=== PATIENT | female | born 1955 ===

== ENCOUNTER 2017-04-06 16:56 | Emergency (ER) | payer MEDICAID ==
[2017-04-06 16:57] VITALS: BMI 52.9
[2017-04-06 17:11] VITALS: O2SAT 97
[2017-04-06] MEDS ORDERED: Oxycodone/Acetaminophen 5/325 mg Tab PO STA (17:32)
--- NOTE | 2017-04-06 17:35 | C.PDOC ---
History Of Present Illness 61yo female, presents to ED for evaluation after she tripped on a rug in her bathroom and fell. Patient states she landed on the edge of her sink, injuring the right side of her ribs. She reports pain worsens with deep breathing. She denies any head injury, loss of consciousness. Patient has no other complaints. (Elena Sullivan) History Per: Patient History/Exam Limitations: no limitations Onset/Duration Of Symptoms: Hrs Current Symptoms Are (Timing): Still Present Additional History Per: Patient Time Seen by Provider: 04/06/17 17:25 Chief Complaint (Nursing): Rib Injury Past Medical History Reviewed: Historical Data, Nursing Documentation, Vital Signs - Medical History PMH: Anxiety, Arthritis, Atrial Fibrillation, CHF, Depression, Gastritis, HTN, Migraine, Mitral Valve Prolapse, Pulmonary Embolism, Rheumatoid Arthritis Denies: Chronic Kidney Disease Surgical History: Pacemaker Family History: States: No Known Family Hx, Unknown Family Hx - Social History Hx Tobacco Use: No Hx Alcohol Use: No Hx Substance Use: No - Immunization History Hx Tetanus Toxoid Vaccination: No Hx Influenza Vaccination: Yes (2014) Hx Pneumococcal Vaccination: No Vital Signs: Last Vital Signs Temp 97.7 F 04/06/17 18:28 Pulse 103 H 04/06/17 18:28 Resp 20 04/06/17 18:28 BP 107/67 04/06/17 18:28 Pulse Ox 97 04/06/17 18:28 - [facility] Procedures INSERTION OF INFUSION DEV INTO SUP VENA CAVA, PERC APPROACH (12/06/15) Review Of Systems Except As Marked, All Systems Reviewed And Found Negative. Cardiovascular: Positive for: Other (right sided rib pain) Respiratory: Positive for: Other (pain with deep inspiration) Neurological: Negative for: Other (head injury) Physical Exam - Physical Exam Appears: Non-toxic, In Acute Distress, Other (obese) Skin: Normal Color, Warm, Dry Head: Atraumatic, Normacephalic Eye(s): bilateral: Normal Inspection, PERRL, EOMI Neck: Normal ROM, Supple Chest: Symmetrical, Tenderness (tenderness to 4th and 5th ribs), Ecchymosis ( ecchymosis noted under right axilla) Cardiovascular: Rhythm Regular Respiratory: Other (poor inspiratory effort due to pain) Gastrointestinal/Abdominal: Soft, No Tenderness Neurological/Psych: Oriented x3, Normal Speech ED Course And Treatment O2 Sat by Pulse Oximetry: 97 (RA) Pulse Ox Interpretation: Normal Medical Decision Making Medical Decision Making: Impression: Rib injury s/p fall Plan: -- XR Ribs and chest -- Percocet 1 tab PO Xray viewed by me shows rib fracture 6-7th, non-displaced, no pneumothorax, cardiomegaly, venous congestion, no effusion. patient continues to complain of pain to chest and rib area. Morphine IM ordered. (Elena Sullivan) PA Review folder: XR Reading: PROCEDURE: Radiographs of the Chest and Right Ribs. HISTORY: rib pain s.p injury and SOB COMPARISON: 02/25/2016. TECHNIQUE: Frontal radiograph of the chest and multiple oblique radiographs of the right ribs were obtained. FINDINGS: RIGHT RIBS: There are acute mildly displaced fractures in the right lateral 7108 ribs. Or focal lesion visualized. LUNGS: There is mild pulmonary venous congestion. No focal consolidation. PLEURA: No pneumothorax or pleural fluid. CARDIOVASCULAR: There is moderate cardiomegaly. Mild pulmonary vascular congestion. Status post CABG. There is a left-sided dual lead transvenous permanent pacing device. OTHER FINDINGS: None. IMPRESSION: Acute mildly displaced fractures in the right lateral 7th and 8th ribs. No pneumothorax or pleural effusion. No consolidation. Pt was treated for rib fractures. No pneumothorax or pleural effusion. ( Jade Cleveland) Disposition Counseled Patient/Family Regarding: Diagnosis, Need For Followup, Rx Given - Disposition Disposition Time: 19:00 - POA Present On Arrival: Falls Or Trauma - Disposition Referrals: Lawrence Ocampo MD [Staff Provider] - Disposition: HOME/ ROUTINE Condition: GOOD Additional Instructions: Your xray shows 2 rib fractures on the right side. It is very important you follow up with your primary doctor. Take pain medicine as needed. Prescriptions: Ibuprofen [Motrin] 600 mg PO Q8 #30 tab oxyCODONE/Acetaminophen [Percocet 5/325 mg Tab] 1 tab PO QID PRN #20 tab PRN Reason: Pain Spirometers and Accessories [Pflex Asset Protection Assistant] 1 each MC Q4 #1 each Instructions: Rib Fracture (ED) Forms: Recombine (Urdu) Print Language: TUVALUAN - Clinical Impression Clinical Impression: Fracture of rib of right side - PA / SLAB STRIPPER / Resident Statement MD/DO has reviewed & agrees with the documentation as recorded. - Scribe Statement The provider has reviewed the documentation as recorded by the Scribe (Leslie Bennett) - Scribe Statement Provider Scribe Attestation: All medical record entries made by the Scribe were at my direction and personally dictated by me. I have reviewed the chart and agree that the record accurately reflects my personal performance of the history, physical exam, medical decision making, and the department course for this patient. I have also personally directed, reviewed, and agree with the discharge instructions and disposition. (Elena Sullivan)
[2017-04-06] MEDS ORDERED: Oxycodone/Acetaminophen 5/325 mg Tab ONE (17:50)
[2017-04-06] MEDS ORDERED: Morphine 4 MG/ML VIAL ONE (18:25)
[2017-04-06 18:30] VITALS: BP 107/67; PULSE 103; RESP 20; TEMP 97.7
--- NOTE | 2017-04-07 08:20 | RAD ---
PROCEDURE: Radiographs of the Chest and Right Ribs. HISTORY: rib pain s.p injury and SOB COMPARISON: 02/25/2016. TECHNIQUE: Frontal radiograph of the chest and multiple oblique radiographs of the right ribs were obtained. FINDINGS: RIGHT RIBS: There are acute mildly displaced fractures in the right lateral 7108 ribs. Or focal lesion visualized. LUNGS: There is mild pulmonary venous congestion. No focal consolidation. PLEURA: No pneumothorax or pleural fluid. CARDIOVASCULAR: There is moderate cardiomegaly. Mild pulmonary vascular congestion. Status post CABG. There is a left-sided dual lead transvenous permanent pacing device. OTHER FINDINGS: None. IMPRESSION: Acute mildly displaced fractures in the right lateral 7th and 8th ribs. No pneumothorax or pleural effusion. No consolidation.
== END 2017-04-06 18:55 | disposition home or self-care (01) ==
LOC: C.ER 16:56
DX: S22.41XA Multiple fractures of ribs, right side, initial encounter for closed fracture (principal); W01.198A Fall on same level from slipping, tripping and stumbling with subsequent striking against other object, initial encounter; Y93.E8 Activity, other personal hygiene; Y92.002 Bathroom of unspecified non-institutional (private) residence as the place of occurrence of the external cause
CPT/HCPCS: 71101; 96372; 99284; J2270

== ENCOUNTER 2018-02-23 16:26 | Emergency (ER) | payer MEDICAID ==
[2018-02-23 16:26] VITALS: BMI 52.9
[2018-02-23 18:23] LABS: BASO # 0.1 K/uL (0.0-0.2); EOS # 0.1 K/uL (0.0-0.7); EOS % 0.8 % (0.0-4.0); HEMOGLOBIN 12.5 g/dL (11.0-16.0); MEAN CORPUSCULAR HEMOGLOBIN 24.6 pg (27.0-31.0); MEAN PLATELET VOLUME 8.9 fL (7.2-11.7); MONO % 8.8 % (0.0-10.0)
[2018-02-23 18:28] LABS: BASO % 0.5 % (0.0-2.0); LYMPH # 1.3 K/uL (1.0-4.3); LYMPH % 13.4 % (20.0-40.0); MONO # 0.9 K/uL (0.0-0.8); NEUT # 7.5 K/uL (1.8-7.0); NEUT % 76.5 % (50.0-75.0); RBC 5.06 Mil/uL (3.80-5.20); RED CELL DISTRIBUTION WIDTH 18.3 % (11.5-14.5); WHITE BLOOD COUNT 9.8 K/uL (4.8-10.8)
[2018-02-23 18:43] LABS: ALB/GLOB RATIO 1.1 (1.0-2.1); ALBUMIN 3.6 g/dL (3.5-5.0); BLOOD UREA NITROGEN 15 mg/dL (7-17); CALCIUM 9.2 mg/dl (8.6-10.4); GFR NON-AFRICAN AMERICAN 50
[2018-02-23 18:49] LABS: INR 1.8; PROTHROMBIN TIME 19.9 SECONDS (9.7-12.2)
[2018-02-23 18:54] LABS: B-TYPE NATRIURETIC PEPTIDE 429 pg/mL (0-900)
--- NOTE | 2018-02-23 19:00 | C.PDOC ---
History Of Present Illness 62 year old female, whose PMHx includes Rheumatoid Arthritis, presents to the ED for evaluation of bilateral knee and upper back pain which began around 2-4 weeks ago. Patient states she fell forward and landed onto her knees around 4 weeks ago. She has been applying heat packs and heating gel to her knees, which has only been worsening her symptoms. Patient has been taking hot showers and applying heating pads to her upper back, without relief. Patient states she is not taking any exogenous steroid medications. She denies head injury, LOC, extremity numbness/weakness. As per daughter at bedside, patient has a poor appetite, has been eating very little. Patient has history of sleep apnea and has a sleep mask at home. Patient has history of anxiety and depression, and is often tearful at home. Patient denies history of Peg disease. Time Seen by Provider: 02/23/18 17:36 Chief Complaint (Nursing): Lower Extremity Problem/Injury History Per: Patient, Family (daughter at bedside ) History/Exam Limitations: no limitations Onset/Duration Of Symptoms: Days Current Symptoms Are (Timing): Still Present Additional History Per: Patient Past Medical History Reviewed: Historical Data, Nursing Documentation, Vital Signs Vital Signs: Last Vital Signs Temp 98.7 F 02/23/18 16:33 Pulse 79 02/23/18 16:33 Resp 18 02/23/18 16:33 BP 65/47 L 02/23/18 16:33 Pulse Ox 97 02/23/18 16:33 - Medical History PMH: Anxiety, Arthritis, Atrial Fibrillation, CHF, Depression, Gastritis, HTN, Migraine, Mitral Valve Prolapse, Pulmonary Embolism, Rheumatoid Arthritis Denies: Chronic Kidney Disease Surgical History: Pacemaker - [facility] Procedures INSERTION OF INFUSION DEV INTO SUP VENA CAVA, PERC APPROACH (12/06/15) Family History: States: Unknown Family Hx - Social History Hx Tobacco Use: No Hx Alcohol Use: No Hx Substance Use: No - Immunization History Hx Tetanus Toxoid Vaccination: No Hx Influenza Vaccination: No Hx Pneumococcal Vaccination: No Review Of Systems Musculoskeletal: Positive for: Back Pain (upper ), Other (bilateral knee pain ) Neurological: Negative for: Weakness, Numbness Physical Exam - Physical Exam Appears: Non-toxic, No Acute Distress, Other (morbidly obese ) Skin: Normal Color, Warm, Dry, Other (no edema of lower leg beneath knees) Head: Other (plethoric face) Eye(s): bilateral: Normal Inspection Oral Mucosa: Moist Neck: Supple, Other (supraclavicular fat pads ) Chest: Symmetrical, No Deformity, No Tenderness Cardiovascular: Rhythm Regular, No Murmur Respiratory: Normal Breath Sounds, No Rales, No Rhonchi, No Wheezing Gastrointestinal/Abdominal: Other (central obesity, abdominal striae) Back: Other (buffalo hump) Extremity: Capillary Refill (less than 2 seconds ), Other (lower extremiries are disproportionately small compared to abdomen, no lower extremity edema ) Neurological/Psych: Oriented x3, Normal Speech, Normal Cognition ED Course And Treatment - Laboratory Results Result Diagrams: 18 18:19 18 18:19 Lab Interpretation: Abnormal (D Dimer 360 (slight elev), PM Random Cortisol level (8PM) 5.63 (wnl)) ECG Rhythm: V Paced ECG Interpretation: Normal, No Changes From Prior Rate From EC O2 Sat by Pulse Oximetry: 97 (on RA) Pulse Ox Interpretation: Normal - Radiology CXR: Interpreted by Me CXR Interpretation: Yes: No Acute Disease, Heart Size - CT Scan/US CTA Chest for PE Other Rad Studies (CT/US): Read By Radiologist, Radiology Report Reviewed CT/US Interpretation: IMPRESSION: 1. Very limited study sec buried to the patient's body habitus resulting in significant image noise, in addition to prominent respiratory motion. 2. A filling defect within the central pulmonary arteries is not identified. 3. No infiltrates or pleural effusions. 4. Borderline size heart in transverse diameter. 5. Patient status post sternotomy and cardiac surgery. 6. Thoracic aorta normal in course and caliber. 7. No clinically significant mediastinal adenopathy identified. 8. Exophytic left renal cyst Progress Note: Bloodwork, urinalysis, Knee XR, CT Angio, CXR, EKG ordered and reviewed. Toradol IVP given. 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 SHELBY: Continue CPAP when sleeping Knee pain fall 4 wks ago minimal knee contusions b/l knee x-rays neg. worse with pt's persistent use of heat therapies and heating gels advise to dispose of all heat-generating therapies @home. improved with ED tx of NSAIDS and ice therapy. posterior neck discomfort worse with persistent heat therapies normal x-rays by PMD 2 weeks ago no neck pathology (other than buffalo hump) noted Gait Apraxia: Worstening due to knee pain Cardiovascular etiology ruled out: no sig anemia h/o DVT/PE, taking Pradaxa daily with good compliance, d-dimer slightly elevated 360, prob due to body habitus PE Study neg. normal BP Disposition Doctor Will See Patient In The: Office Counseled Patient/Family Regarding: Studies Performed, Diagnosis - Disposition Referrals: Lawrence Ocampo MD [Staff Provider] - Disposition: HOME/ ROUTINE Disposition Time: 21:25 Condition: GOOD Additional Instructions: Peg Syndrome: Classic Clinical presentation Plethoric face, buffalo hump, supraclavicular fat pads, central obesity with vertical abd straia, anxiety/depression poor appetite and PO intake with persistent weight gain random cortisol PM wnl 5.63 Consider 24 urine cortisol and/or ACTH level to continue outpatient eval Seek and stop ALL outpatient oral/injected/topical steroid preparations. Depression/Bipolar: pt never manic by report (daughter) often a byproduct of [place] Syndrome Consider seocondary to Peg syndrome therefore refractory to standard psych tx's. SHELBY: Continue CPAP when sleeping Knee pain/Gait apraxia fall 4 wks ago minimal knee contusions b/l knee x-rays neg. Mild arthritis worse with pt's persistent use of heat therapies and heating gels advise to dispose of all heat-generating therapies @home. improved with ED tx of NSAIDS and ice therapy. continue ice 1/2 hour per hour, nothing hot Motrin/Advil 400-600 mg every 6 hours as needed. ? underlying RA, but no classic hand/finger findings posterior neck discomfort worse with persistent heat therapies normal x-rays by PMD 2 weeks ago no neck pathology (other than buffalo hump) noted Cardiovascular etiology ruled out: no sig anemia h/o DVT/PE, taking Pradaxa daily with good compliance, d-dimer slightly elevated 360, prob due to body habitus PE Study neg. normal BP Instructions: Peg's Syndrome, Chronic Knee Pain Forms: edupristine (Japanese) - Clinical Impression Clinical Impression: Knee pain, bilateral - Scribe Statement The provider has reviewed the documentation as recorded by the Scribe (Pily Fernandez) Provider Attestation: All medical record entries made by the Scribe were at my direction and personally dictated by me. I have reviewed the chart and agree that the record accurately reflects my personal performance of the history, physical exam, medical decision making, and the department course for this patient. I have also personally directed, reviewed, and agree with the discharge instructions and disposition.
--- NOTE | 2018-02-23 19:00 | RAD ---
HISTORY: SOB COMPARISON: Chest x-ray performed 04/06/17 TECHNIQUE: Chest, one view. FINDINGS: Examination markedly limited by habitus. The patient's chin obscures evaluation of the lung apices. LUNGS: No focal consolidation. Please note that chest x-ray has limited sensitivity for the detection of pulmonary masses. PLEURA: No significant pleural effusion identified. No definite pneumothorax . CARDIOVASCULAR: Median sternotomy wires. Severe enlargement of the cardiac silhouette. Left-sided pacemaker. Limited visualization of prosthetic cardiac valve seen to better advantage on prior study. OSSEOUS STRUCTURES: No acute osseous abnormality is detected. VISUALIZED UPPER ABDOMEN: Unremarkable. OTHER FINDINGS: None. IMPRESSION: Severe cardiomegaly. Left-sided pacemaker.
[2018-02-23 19:04] LABS: ALT/SGPT 17 U/L (9-52); AST/SGOT 28 U/L (14-36)
[2018-02-23 19:37] LABS: SQUAMOUS EPITHIAL 5 /hpf (0-5); URINE BACTERIA OCC (<OCC); URINE BILIRUBIN NEGATIVE (NEGATIVE); URINE BLOOD NEGATIVE (NEGATIVE); URINE CLARITY Clear (Clear); URINE COLOR Yellow (YELLOW); URINE GLUCOSE (UA) NORMAL (Normal); URINE LEUKOCYTE ESTERASE NEG Leu/uL (Negative); URINE PROTEIN NEGATIVE (NEGATIVE); URINE UROBILINOGEN NORMAL mg/dL (0.2-1.0)
[2018-02-23] MEDS ORDERED: Iodixanol 320 MG/ML 100 ML BOTTLE IV ONE (20:13)
[2018-02-23 21:24] VITALS: BP 131/67; PULSE 91; RESP 18; TEMP 98.2
[2018-02-23 21:25] VITALS: O2SAT 97
--- NOTE | 2018-02-24 10:10 | CT ---
Date of service: 02/23/2018 PROCEDURE: CT Chest with contrast (Pulmonary Angiogram) HISTORY: Rule out PE., morbid obesity; slight elevated d Dimer COMPARISON: None available. TECHNIQUE: Axial computed tomography images were obtained of the chest in the pulmonary arterial phase of enhancement. Coronal and sagittal reformatted images were created and reviewed. Intravenous contrast dose: Radiation dose: Total exam DLP = 566.33 mGy-cm. This CT exam was performed using one or more of the following dose reduction techniques: Automated exposure control, adjustment of the mA and/or kV according to patient size, and/or use of iterative reconstruction technique. FINDINGS: PULMONARY ARTERIES: Evaluation of the pulmonary arteries is quite limited due to of morbid obesity.. The visualized pulmonary trunk, right and left main, lobar, segmental and proximal subsegmental branches of the pulmonary arteries are well opacified with no definitive filling defects seen to suggest large central pulmonary embolus. Pulmonary trunk measures approximately 3.1 cm. AORTA: No acute findings. No thoracic aortic aneurysm. Ascending thoracic aorta measures approximately 2.8 cm. Descending thoracic aorta measures approximately 2.6 cm. Minimal the o aortic atherosclerotic calcification or mural plaque present. LUNGS: Mild passive/dependent type atelectasis.. Minor scarring changes seen in the right middle lobe and lingular regions.. No focal consolidation. No evidence of parenchymal masses or nodules seen. PLEURAL SPACES: Unremarkable. No effusion or pneumothorax. HEART: Heart size is borderline/mildly enlarged. No significant pericardial effusion. Dense mitral valve calcification.. LYMPH NODES: No significant mediastinal or hilar adenopathy. Trachea midline and patent with no large central endoluminal lesions.. BONES, CHEST WALL: Chronic appearing endplate deformities involving the superior T6 and T7 segments. Minor multilevel degenerative spondylosis of the thoracic spine. OTHER FINDINGS: Enlarged heterogeneous appearing right lobe thyroid gland with few small low-attenuation foci possibly representing nodule. Left lobe thyroid gland is also slightly heterogeneous with tiny calcification. Questionable small hypodense nodule left lobe thyroid gland. Follow-up thyroid ultrasound recommended. IMPRESSION: Limited study due to morbid obesity. No evidence of acute central pulmonary embolus. Mild cardiomegaly. Enlarged heterogeneous right lobe thyroid gland with what appears represent several small ill-defined nodules. Heterogeneous left lobe thyroid gland with small calcification. Recommend follow-up thyroid ultrasound.
--- NOTE | 2018-02-24 12:27 | RAD ---
Date of service: 02/23/2018 PROCEDURE: Bilateral Knee Radiographs. HISTORY: fall forward 1 month ago, morbid obese, ? Effusion COMPARISON: None available. FINDINGS: Examination limited by habitus. BONES: Right Knee: No acute displaced fracture identified. Left Knee: No acute displaced fracture identified. JOINTS: Right Knee: No dislocation. No significant osteoarthritis. Left knee: No dislocation. No significant osteoarthritis. SOFT TISSUES: Right Knee: No evidence of radiopaque foreign body. Left Knee: No evidence of radiopaque foreign body. JOINT EFFUSION: Right Knee: No significant joint effusion identified. Left Knee: No significant joint effusion identified. OTHER FINDINGS: None. IMPRESSION: Limited study. No acute displaced fracture, dislocation, or significant joint effusion identified. If high clinical index of suspicion for occult fracture, recommend CT for further evaluation.
== END 2018-02-23 21:44 | disposition home or self-care (01) ==
LOC: C.ER 16:26
DX: M25.561 Pain in right knee (principal); M25.562 Pain in left knee; I50.9 Heart failure, unspecified; I48.91 Unspecified atrial fibrillation; I10 Essential (primary) hypertension; M06.9 Rheumatoid arthritis, unspecified
CPT/HCPCS: 71045; 71275; 73562; 80053; 81001; 82533; 83880; 84484; 85025; 85378; 85610; 85730; 93005; 96374; 99285; J1885; Q9967

== ENCOUNTER 2018-05-13 22:34 | Inpatient (IN) | payer MEDICAID ==
[2018-05-13 22:34] VITALS: BMI 52.9
[2018-05-13 23:20] LABS: BASO # 0.1 K/uL (0.0-0.2); BASO % 0.7 % (0.0-2.0); EOS # 0.1 K/uL (0.0-0.7); EOS % 0.7 % (0.0-4.0); HEMOGLOBIN 12.6 g/dL (11.0-16.0); LYMPH # 1.2 K/uL (1.0-4.3); LYMPH % 11.3 % (20.0-40.0); MEAN CELL VOLUME 78.5 fL (81.0-99.0); MEAN CORPUSCULAR HEMOGLOBIN 25.4 pg (27.0-31.0); MEAN CORPUSCULAR HGB CONC 32.3 g/dL (33.0-37.0); MEAN PLATELET VOLUME 8.8 fL (7.2-11.7); MONO # 0.9 K/uL (0.0-0.8); MONO % 8.6 % (0.0-10.0); NEUT # 8.1 K/uL (1.8-7.0); NEUT % 78.7 % (50.0-75.0); NRBC % 0.2 % (0.0-2.0); RBC 4.96 Mil/uL (3.80-5.20); RED CELL DISTRIBUTION WIDTH 17.9 % (11.5-14.5); WHITE BLOOD COUNT 10.3 K/uL (4.8-10.8)
[2018-05-13 23:31] LABS: INR 1.4; PROTHROMBIN TIME 15.8 SECONDS (9.7-12.2)
[2018-05-14] LABS: ALB/GLOB RATIO 1.3 (1.0-2.1); ALT/SGPT 13 U/L (9-52); AST/SGOT 20 U/L (14-36); BLOOD UREA NITROGEN 15 mg/dL (7-17); GFR NON-AFRICAN AMERICAN 56
[2018-05-14 00:11] LABS: B-TYPE NATRIURETIC PEPTIDE 583 pg/mL (0-900)
[2018-05-14] MEDS ORDERED: Iodixanol 320 MG/ML 100 ML BOTTLE IV ONE (00:24)
--- NOTE | 2018-05-14 00:28 | C.PDOC ---
History Of Present Illness 62 year old female presents to the ED with daughter after being referred by Dr. Ocampo for evaluation of increasing shortness of breath, dyspnea on exertion and chronic bilateral knee pain. Patient was evaluated in this ED in February 2018 by me. Daughter states they have stopped heat therapy and have been using ice therapy occasionally. Patient has increased difficulty walking and steady central obesity weight gain. Patient was undergone outpatient 24-hnour urine cortisol and ACTH evaluation with Dr. Funes, which were negative for Alexander's disease. Patient denies fever, chills. <Woo Olivo - Last Filed: 05/14/18 00:47> History Per: Patient, Family (daughter) History/Exam Limitations: no limitations Onset/Duration Of Symptoms: Days Current Symptoms Are (Timing): Still Present <Woo Olivo - Last Filed: 05/14/18 00:47> <Heather Laguerre - Last Filed: 05/14/18 06:50> Time Seen by Provider: 05/13/18 22:56 Chief Complaint (Nursing): Chest Pain Past Medical History Reviewed: Historical Data, Nursing Documentation, Vital Signs Vital Signs: Last Vital Signs Temp 98.6 F 05/13/18 22:45 Pulse 80 05/13/18 22:45 Resp 28 H 05/13/18 22:45 BP 125/56 L 05/13/18 22:45 Pulse Ox 95 05/13/18 22:45 - Medical History PMH: Anxiety, Arthritis, Atrial Fibrillation, CHF, Depression, Gastritis, HTN, Migraine, Mitral Valve Prolapse, Pulmonary Embolism, Rheumatoid Arthritis Denies: Chronic Kidney Disease Surgical History: Pacemaker - [facility] Procedures INSERTION OF INFUSION DEV INTO SUP VENA CAVA, PERC APPROACH (12/06/15) Family History: States: Unknown Family Hx - Social History Hx Tobacco Use: No Hx Alcohol Use: No Hx Substance Use: No - Immunization History Hx Tetanus Toxoid Vaccination: No Hx Influenza Vaccination: Yes Hx Pneumococcal Vaccination: Yes <Woo Olivo - Last Filed: 05/14/18 00:47> Vital Signs: Last Vital Signs Temp 98.6 F 05/13/18 22:45 Pulse 80 05/13/18 22:45 Resp 28 H 05/13/18 22:45 BP 125/56 L 05/13/18 22:45 Pulse Ox 95 05/14/18 00:49 - [facility] Procedures INSERTION OF INFUSION DEV INTO SUP VENA CAVA, PERC APPROACH (12/06/15) Family History: States: No Known Family Hx <Heather Laguerre - Last Filed: 05/14/18 06:50> Review Of Systems Respiratory: Positive for: Shortness of Breath, SOB with Excertion Musculoskeletal: Positive for: Other (chronic bilateral knee pain ) <Woo Olivo - Last Filed: 05/14/18 00:47> Physical Exam - Physical Exam Appears: Non-toxic, No Acute Distress, Other (mobidly obese ) Skin: Normal Color, Warm, Dry Head: Atraumatic, Normacephalic Eye(s): bilateral: Normal Inspection Oral Mucosa: Moist Neck: Supple Chest: Symmetrical, No Deformity, No Tenderness Cardiovascular: Rhythm Regular, No Murmur Respiratory: Normal Breath Sounds, No Rales, No Rhonchi, No Wheezing Gastrointestinal/Abdominal: Soft, No Distention, Other (globus abdomen) Extremity: Tenderness (bilateral knees ), Capillary Refill (less than 2 seconds ), Other (lower extremities are obese without edema ) Pulses: Left Dorsalis Pedis: Normal, Right Dorsalis Pedis: Normal Neurological/Psych: Oriented x3, Normal Speech, Normal Cognition <Woo Olivo - Last Filed: 05/14/18 00:47> ED Course And Treatment - Laboratory Results Result Diagrams: 05/13/18 23:17 05/13/18 23:43 Lab Results: PT 15.8 SECONDS (9.7-12.2) H 05/13/18 23:17 INR 1.4 05/13/18 23:17 APTT 55 SECONDS (21-34) H 05/13/18 23:17 D-Dimer, Quantitative 381 ng/mlDDU (0-243) H 05/13/18 23:17 Troponin I 0.0300 ng/mL (0.00-0.120) 05/13/18 23:43 NT-Pro-B Natriuret Pep 583 pg/mL (0-900) 05/13/18 23:43 Total Bilirubin 0.3 mg/dL (0.2-1.3) 05/13/18 23:43 AST 20 U/L (14-36) 05/13/18 23:43 ALT 13 U/L (9-52) 05/13/18 23:43 Alkaline Phosphatase 129 U/L (38-126) H D 05/13/18 23:43 Total Protein 7.0 g/dL (6.3-8.3) 05/13/18 23:43 Albumin 4.0 g/dL (3.5-5.0) 05/13/18 23:43 Globulin 3.0 gm/dL (2.2-3.9) 05/13/18 23:43 Albumin/Globulin Ratio 1.3 (1.0-2.1) 05/13/18 23:43 O2 Sat by Pulse Oximetry: 95 (on RA) Pulse Ox Interpretation: Normal Progress Note: Bloodwork, urinalysis, CT Angio Chest, CXR, EKG ordered. <Woo Olivo E - Last Filed: 05/14/18 00:47> - Laboratory Results Result Diagrams: 05/13/18 23:17 05/13/18 23:43 Lab Results: PT 15.8 SECONDS (9.7-12.2) H 05/13/18 23:17 INR 1.4 05/13/18 23:17 APTT 55 SECONDS (21-34) H 05/13/18 23:17 D-Dimer, Quantitative 381 ng/mlDDU (0-243) H 05/13/18 23:17 Troponin I 0.0300 ng/mL (0.00-0.120) 05/13/18 23:43 NT-Pro-B Natriuret Pep 583 pg/mL (0-900) 05/13/18 23:43 Total Bilirubin 0.3 mg/dL (0.2-1.3) 05/13/18 23:43 AST 20 U/L (14-36) 05/13/18 23:43 ALT 13 U/L (9-52) 05/13/18 23:43 Alkaline Phosphatase 129 U/L (38-126) H D 05/13/18 23:43 Total Protein 7.0 g/dL (6.3-8.3) 05/13/18 23:43 Albumin 4.0 g/dL (3.5-5.0) 05/13/18 23:43 Globulin 3.0 gm/dL (2.2-3.9) 05/13/18 23:43 Albumin/Globulin Ratio 1.3 (1.0-2.1) 05/13/18 23:43 <Heather Laguerre - Last Filed: 05/14/18 06:50> Medical Decision Making Medical Decision Making: no leg edema nor discernable JVD though difficult to assess considering morbidly obese body habitus mild elev d-dimer 381 CTA to r/o PE pending as pt high risk though on Pradaxa 0100: signed over to overnight MD, pending CTA and adm to Dr. Ocampo <Woo Olivo E - Last Filed: 05/14/18 00:47> Disposition <Woo Olivo - Last Filed: 05/14/18 00:47> Discussed With DrTata: Lawrence Ocampo Comment: accepted the pt on his service and took over the care at 4:22AM Doctor Will See Patient In The: Hospital Counseled Patient/Family Regarding: Studies Performed, Diagnosis - Disposition Disposition Time: 01:00 - POA Present On Arrival: Poor Glycemic Control <Heather Laguerre - Last Filed: 05/14/18 06:50> - Disposition Disposition: HOSPITALIZED Condition: FAIR - Clinical Impression Clinical Impression: Dyspnea on exertion, Chest pain, Degenerative joint disease involving multiple joints, Ambulatory dysfunction - Scribe Statement The provider has reviewed the documentation as recorded by the Scribe (Pily Fernandez) Provider Attestation: All medical record entries made by the Scribe were at my direction and personally dictated by me. I have reviewed the chart and agree that the record accurately reflects my personal performance of the history, physical exam, medical decision making, and the department course for this patient. I have also personally directed, reviewed, and agree with the discharge instructions and disposition. <Woo Olivo E - Last Filed: 05/14/18 00:47> Decision To Admit <Woo Olivo - Last Filed: 05/14/18 00:47> - Pt Status Changed To: Hospital Disposition Of: Inpatient - Admit Certification Admit to Inpatient:: After my assessment, the patient will require hospitalization for at least two midnights. This is because of the severity of symptoms shown, intensity of services needed, and/or the medical risk in this patient being treated as an outpatient. - InPatient: Physician Admission Certification: I certify that this patient requires 2 or more midnights of care for the following reason:: After my assessment, the patient will require hospitalization for at least two midnights. This is because of the severity of symptoms shown, intensity of services needed, and/or the medical risk in this patient being treated as an outpatient. - . Bed Request Type: Telemetry Admitting Physician: Lawrence Ocampo <Heather Laguerre - Last Filed: 05/14/18 06:50> - . Patient Diagnosis: Dyspnea on exertion, Chest pain, Degenerative joint disease involving multiple joints, Ambulatory dysfunction
--- NOTE | 2018-05-14 00:38 | C.PDOC ---
Time Seen by Provider: 05/13/18 22:56 Chief Complaint (Nursing): Chest Pain Past Medical History Vital Signs: Last Vital Signs Temp 98.6 F 05/13/18 22:45 Pulse 80 05/13/18 22:45 Resp 28 H 05/13/18 22:45 BP 125/56 L 05/13/18 22:45 Pulse Ox 95 05/13/18 22:45 - Medical History PMH: Anxiety, Arthritis, Atrial Fibrillation, CHF, Depression, Gastritis, HTN, Migraine, Mitral Valve Prolapse, Pulmonary Embolism, Rheumatoid Arthritis Denies: Chronic Kidney Disease Surgical History: Pacemaker - [facility] Procedures INSERTION OF INFUSION DEV INTO SUP VENA CAVA, PERC APPROACH (12/06/15) Family History: States: Unknown Family Hx - Social History Hx Tobacco Use: No Hx Alcohol Use: No Hx Substance Use: No - Immunization History Hx Tetanus Toxoid Vaccination: No Hx Influenza Vaccination: Yes Hx Pneumococcal Vaccination: Yes ED Course And Treatment - Laboratory Results Result Diagrams: 05/13/18 23:17 05/13/18 23:43 Lab Results: PT 15.8 SECONDS (9.7-12.2) H 05/13/18 23:17 INR 1.4 05/13/18 23:17 APTT 55 SECONDS (21-34) H 05/13/18 23:17 D-Dimer, Quantitative 381 ng/mlDDU (0-243) H 05/13/18 23:17 Troponin I 0.0300 ng/mL (0.00-0.120) 05/13/18 23:43 NT-Pro-B Natriuret Pep 583 pg/mL (0-900) 05/13/18 23:43 Total Bilirubin 0.3 mg/dL (0.2-1.3) 05/13/18 23:43 AST 20 U/L (14-36) 05/13/18 23:43 ALT 13 U/L (9-52) 05/13/18 23:43 Alkaline Phosphatase 129 U/L (38-126) H D 05/13/18 23:43 Total Protein 7.0 g/dL (6.3-8.3) 05/13/18 23:43 Albumin 4.0 g/dL (3.5-5.0) 05/13/18 23:43 Globulin 3.0 gm/dL (2.2-3.9) 05/13/18 23:43 Albumin/Globulin Ratio 1.3 (1.0-2.1) 05/13/18 23:43 Lab Interpretation: Abnormal (d-dimer 381) ECG: Interpreted By Me ECG Rhythm: V Paced ECG Interpretation: Normal Rate From EC O2 Sat by Pulse Oximetry: 95 Pulse Ox Interpretation: Normal - Radiology CXR: Interpreted by Me CXR Interpretation: Yes: Cardiomegaly, Other (+ mild congestion) Reevaluation Time: 00:36 Reassessment Condition: Improved Medical Decision Making Medical Decision Making: no leg edema nor discernable JVD though difficult to assess considering morbidly obese body habitus mild elev d-dimer 381 CTA to r/o PE pending as pt high risk though on Pradaxa 0100: signed over to overnight MD, pending CTA and adm to Dr. Ocampo Disposition - Disposition Disposition Time: 01:00 Condition: GOOD - Clinical Impression Clinical Impression: Dyspnea on exertion Physician Patient Turnover Patient Signed Over To: Heather Laguerre Handoff Comments: adm to [facility] after CTA
[2018-05-14 05:11] LABS: SQUAMOUS EPITHIAL 2 /hpf (0-5); URINE BACTERIA RARE (<OCC); URINE BILIRUBIN NEGATIVE (NEGATIVE); URINE BLOOD NEGATIVE (NEGATIVE); URINE CLARITY Clear (Clear); URINE COLOR Yellow (YELLOW); URINE GLUCOSE (UA) NORMAL (Normal); URINE LEUKOCYTE ESTERASE NEG Leu/uL (Negative); URINE PROTEIN NEGATIVE (NEGATIVE); URINE UROBILINOGEN NORMAL mg/dL (0.2-1.0)
[2018-05-14 05:25] LABS: BARBITURATES, UR NEGATIVE (NEGATIVE); BENZODIAZEPINES, UR NEGATIVE (NEGATIVE); OPIATES, UR NEGATIVE (NEGATIVE); PHENCYCLIDINE, UR NEGATIVE (NEGATIVE)
[2018-05-14 08:13] LABS: CK-MB 0.49 ng/mL (0.0-3.38); TROPONIN I 0.035 ng/mL (0.00-0.120)
--- NOTE | 2018-05-14 08:24 | RAD ---
Date of service: 05/13/2018 PROCEDURE: CHEST RADIOGRAPH, 1 VIEW HISTORY: SOB COMPARISON: 02/23/2018. FINDINGS: LUNGS: The lungs are well inflated and clear. PLEURA: No pneumothorax or pleural effusion. CARDIOVASCULAR: There is moderate cardiomegaly. Status post CABG. There is stable position of left-sided permanent pacing device. No aortic atherosclerotic calcifications present. OSSEOUS STRUCTURES: Within normal limits for the patient's age. VISUALIZED UPPER ABDOMEN: Normal. OTHER FINDINGS: None. IMPRESSION: No active pulmonary disease.
[2018-05-14] MEDS: Pantoprazole 40 mg EC Tab PO SCH (09:29)
--- NOTE | 2018-05-14 10:38 | CT ---
Date of service: 05/14/2018 CTA chest PE protocol Indication: ? PE, morbid obese legs, elev d-dimer, sob Technique: Contiguous axial images were obtained through the chest with intravenous contrast enhancement. Sagittal and coronal reconstructions were generated and reviewed. This CT exam was performed using 1 or more of the following dose reduction techniques: Automated exposure control, adjustment of the MAA and/or kV according to patient size, and/or use of iterative reconstruction technique. IV contrast: 100 mL Visipaque 320 IV Radiation dose (DLP): 639.7 MGy-cm. Comparison: Chest x-ray performed 05/13/18 Findings: Examination markedly limited by habitus. Visualized portions of the inferior thyroid gland appear heterogeneous. The mediastinal and hilar vascular structures appear within normal limits. Median sternotomy wires. Cardiomegaly. Prosthetic mitral valve. Left-sided pacemaker with pacer leads present. Limited assessment of the pulmonary arteries. No large central or proximal segmental pulmonary embolus identified. No focal consolidation. No pleural effusion. No pneumothorax. No suspicious pulmonary nodules measuring greater than 5 mm. Limited visualized portions of the upper abdomen: Partially imaged left lower pole renal heterogeneous hypodensity, partially imaged on this examination. Degenerative changes of the spine. Impression: Markedly limited study. Cardiomegaly. Median sternotomy wires. Prosthetic mitral valve. Left-sided pacemaker with pacer leads. Heterogeneous appearance of the included portions inferior thyroid gland. Limited assessment of the pulmonary arteries due to habitus. No large central or proximal segmental pulmonary embolus identified. Limited visualized portions of the upper abdomen: Partially imaged left lower pole renal heterogeneous hypodensity, partially imaged on this examination. Preliminary impression was provided by [employer].
--- NOTE | 2018-05-14 10:58 | CT ---
PROCEDURE: CT Abdomen and Pelvis without Oral or IV contrast. HISTORY: increased abdominal girth, pain COMPARISON: None available. TECHNIQUE: Contiguous axial images of the abdomen and pelvis. No oral or IV contrast administered. Coronal and Sagittal reformats generated and reviewed. Radiation dose: Total exam DLP = 1331.66 mGy-cm. This CT exam was performed using one or more of the following dose reduction techniques: Automated exposure control, adjustment of the mA and/or kV according to patient size, and/or use of iterative reconstruction technique. FINDINGS: Examination markedly limited by habitus as well as motion artifact. There is limited evaluation of the solid organs without the administration of IV contrast. LOWER THORAX: No visible consolidation, pleural effusion, or pneumothorax. Partially imaged cardiomegaly, prosthetic cardiac valve, pacer wires. LIVER: Nodular hepatic contour. GALLBLADDER AND BILE DUCTS: Unremarkable. PANCREAS: Fatty atrophy of the pancreas. SPLEEN: Unremarkable. ADRENALS: Unremarkable. KIDNEYS AND URETERS: No hydronephrosis or obstructing renal calculus. 1.8 cm posterior left lower pole exophytic hypodense mass measures approximately 3 Hounsfield units consistent with a cyst. BLADDER: The urinary bladder appears unremarkable. REPRODUCTIVE: Uterus is present. APPENDIX: The appendix appears within normal limits of caliber. No secondary signs of acute appendicitis. BOWEL: The stomach is nondistended. Lack of oral contrast limits evaluation for bowel pathology. The bowel loops appear within normal limits of caliber without evidence of intestinal obstruction. Diverticulosis without CT evidence of acute diverticulitis. Mild constipation. PERITONEUM: No significant free fluid. No definite free air. LYMPH NODES: No bulky lymphadenopathy identified. VASCULATURE: IVC filter. No aortic aneurysm. Mild atherosclerotic calcifications. BONES: Degenerative changes. OTHER FINDINGS: Mild panniculitis, anterior abdominal wall. IMPRESSION: Nodular hepatic contour. Correlate clinically for possibility of cirrhosis. 1.8 cm left lower pole renal cyst. Diverticulosis without CT evidence of acute diverticulitis. Mild constipation. IVC filter. Mild panniculitis, anterior abdominal wall. Additional findings as above. Preliminary impression was provided by [employer]. Study marked for PA review.
--- NOTE | 2018-05-14 15:25 | RAD ---
Date of service: 05/14/2018 PROCEDURE: Bilateral Knee Radiographs. HISTORY: knee pain COMPARISON: Bilateral knee x-rays 02/23/2018 FINDINGS: BONES: No fracture identified. Spurring noted of the bilateral medial tibial spines. JOINTS: No dislocation seen. Mild narrowing of the left knee medial joint space compartment.. SOFT TISSUES: Unremarkable. JOINT EFFUSION: Right Knee: None. Left Knee: Small suprapatellar joint effusion. OTHER FINDINGS: None. IMPRESSION: No fracture or dislocation identified. Additional findings as above.
--- NOTE | 2018-05-14 16:31 | CP.PCM.CON ---
History of Present Illness - History of Present Illness History of Present Illness: patient seen/examined full consult to follow echocardiogram reviewed. Left vetnricular function is at the lower limits of normal Prosthetic valve function is normal No perivalvular leak is noted. will continue current medical therapy. Patient's presentation is not due to CHF. The patient appears to have mild to moderate pulmonary HTn on echo Past Patient History - Infectious Disease Hx of Infectious Diseases: None - Tetanus Immunizations Tetanus Immunization: Up to Date - Past Medical History & Family History Past Medical History?: Yes - Past Social History Smoking Status: Former Smoker - CARDIAC Hx Atrial Fibrillation: Yes Hx Congestive Heart Failure: Yes Hx Hypertension: Yes Hx Mitral Valve Prolapse: Yes Hx Pacemaker: Yes - PULMONARY Hx Pulmonary Embolism: Yes - NEUROLOGICAL Hx Migraine: Yes - HEENT Hx HEENT Problems: No - RENAL Hx Chronic Kidney Disease: No - ENDOCRINE/METABOLIC Hx Endocrine Disorders: No - HEMATOLOGICAL/ONCOLOGICAL Hx Blood Disorders: No - INTEGUMENTARY Hx Dermatological Problems: No - MUSCULOSKELETAL/RHEUMATOLOGICAL Hx Arthritis: Yes Hx Falls: Yes Hx Rheumatoid Arthritis: Yes - GASTROINTESTINAL Hx Gastritis: Yes - GENITOURINARY/GYNECOLOGICAL Hx Genitourinary Disorders: No - PSYCHIATRIC Hx Anxiety: Yes Hx Depression: Yes Hx Substance Use: No - SURGICAL HISTORY Hx Surgeries: Yes Hx Section: Yes Hx Open Heart Surgery: Yes Hx Valve Replacement: Yes - ANESTHESIA Hx Anesthesia: Yes Hx Anesthesia Reactions: No Meds Allergies/Adverse Reactions: Allergies Allergy/AdvReac Type Severity Reaction Status Date / Time No Known Allergies Allergy Verified 02/23/18 16:32 - Medications Medications: Current Medications Albuterol Sulfate (Albuterol 0.042% Inhal Anne (1.25mg/3ml) Ud) 1.25 mg INH RQ6 [facility] Clonazepam (Klonopin) 1 mg PO HS PRN PRN Reason: Anxiety Dabigatran (Pradaxa) 150 mg PO BID [facility] Last Admin: 05/14/18 09:28 Dose: 150 mg Fluoxetine HCl (Prozac) 20 mg PO DAILY [facility] Last Admin: 05/14/18 09:29 Dose: 20 mg Fluoxetine HCl (Prozac) 10 mg PO QPM [facility] Furosemide (Lasix) 40 mg PO BID [facility] Last Admin: 05/14/18 09:29 Dose: 40 mg Pantoprazole Sodium (Protonix Ec Tab) 40 mg PO DAILY [facility] Last Admin: 05/14/18 09:29 Dose: 40 mg Sacubitril/Valsartan (Entresto 24 Mg-26 Mg) 1 tab PO DAILY [facility] Results - Vital Signs Recent Vital Signs: Last Vital Signs Temp 98.1 F 05/14/18 05:00 Pulse 80 05/14/18 07:50 Resp 21 05/14/18 05:00 BP 120/62 05/14/18 09:29 Pulse Ox 100 05/14/18 05:00 - Labs Result Diagrams: 05/13/18 23:17 05/13/18 23:43 Labs: Laboratory Results - last 24 hr 05/13/18 05/13/18 05/13/18 23:17 23:17 23:43 WBC 10.3 RBC 4.96 Hgb 12.6 Hct 38.9 MCV 78.5 L MCH 25.4 L MCHC 32.3 L RDW 17.9 H Plt Count 668 H MPV 8.8 Neut % (Auto) 78.7 H Lymph % (Auto) 11.3 L [place] % (Auto) 8.6 Eos % (Auto) 0.7 Baso % (Auto) 0.7 Neut # (Auto) 8.1 H Lymph # (Auto) 1.2 [place] # (Auto) 0.9 H Eos # (Auto) 0.1 Baso # (Auto) 0.1 PT 15.8 H INR 1.4 APTT 55 H D-Dimer, Quantitative 381 H Sodium 136 Potassium 5.1 Chloride 100 Carbon Dioxide 30 Anion Gap 11 BUN 15 Creatinine 1.0 Est GFR ( Amer) > 60 Est GFR (Non-Af Amer) 56 Random Glucose 165 H D Calcium 9.0 Phosphorus 3.4 Magnesium 1.7 Total Bilirubin 0.3 AST 20 ALT 13 Alkaline Phosphatase 129 H D Total Creatine Kinase CK-MB (Mass) Troponin I 0.0300 NT-Pro-B Natriuret Pep 583 Total Protein 7.0 Albumin 4.0 Globulin 3.0 Albumin/Globulin Ratio 1.3 Urine Color Urine Clarity Urine pH Ur Specific [place] Urine Protein Urine Glucose (UA) Urine Ketones Urine Blood Urine Nitrate Urine Bilirubin Urine Urobilinogen Ur Leukocyte Esterase Urine WBC (Auto) Urine RBC (Auto) Ur Squamous Epith Cells Urine Bacteria Urine Opiates Screen Urine Methadone Screen Ur Barbiturates Screen Ur Phencyclidine Scrn Ur Amphetamines Screen U Benzodiazepines Scrn U Oth Cocaine Metabols U Cannabinoids Screen 05/14/18 05/14/18 05/14/18 05:05 05:05 07:35 WBC RBC Hgb Hct MCV MCH MCHC RDW Plt Count MPV Neut % (Auto) Lymph % (Auto) [place] % (Auto) Eos % (Auto) Baso % (Auto) Neut # (Auto) Lymph # (Auto) [place] # (Auto) Eos # (Auto) Baso # (Auto) PT INR APTT D-Dimer, Quantitative Sodium Potassium Chloride Carbon Dioxide Anion Gap BUN Creatinine Est GFR ( Amer) Est GFR (Non-Af Amer) Random Glucose Calcium Phosphorus Magnesium Total Bilirubin AST ALT Alkaline Phosphatase Total Creatine Kinase 27 L CK-MB (Mass) 0.49 Troponin I 0.0350 NT-Pro-B Natriuret Pep Total Protein Albumin Globulin Albumin/Globulin Ratio Urine Color Yellow Urine Clarity Clear Urine pH 7.0 Ur Specific [place] 1.018 Urine Protein Negative Urine Glucose (UA) Normal Urine Ketones Negative Urine Blood Negative Urine Nitrate Negative Urine Bilirubin Negative Urine Urobilinogen Normal Ur Leukocyte Esterase Neg Urine WBC (Auto) 1 Urine RBC (Auto) < 1 Ur Squamous Epith Cells 2 Urine Bacteria Rare Urine Opiates Screen Negative Urine Methadone Screen Negative Ur Barbiturates Screen Negative Ur Phencyclidine Scrn Negative Ur Amphetamines Screen Negative U Benzodiazepines Scrn Negative U Oth Cocaine Metabols Negative U Cannabinoids Screen Negative
--- NOTE | 2018-05-14 16:31 | CP.PCM.CON ---
Past Patient History - Infectious Disease Hx of Infectious Diseases: None - Tetanus Immunizations Tetanus Immunization: Up to Date - Past Medical History & Family History Past Medical History?: Yes - Past Social History Smoking Status: Former Smoker - CARDIAC Hx Atrial Fibrillation: Yes Hx Congestive Heart Failure: Yes Hx Hypertension: Yes Hx Mitral Valve Prolapse: Yes Hx Pacemaker: Yes - PULMONARY Hx Pulmonary Embolism: Yes - NEUROLOGICAL Hx Migraine: Yes - HEENT Hx HEENT Problems: No - RENAL Hx Chronic Kidney Disease: No - ENDOCRINE/METABOLIC Hx Endocrine Disorders: No - HEMATOLOGICAL/ONCOLOGICAL Hx Blood Disorders: No - INTEGUMENTARY Hx Dermatological Problems: No - MUSCULOSKELETAL/RHEUMATOLOGICAL Hx Arthritis: Yes Hx Falls: Yes Hx Rheumatoid Arthritis: Yes - GASTROINTESTINAL Hx Gastritis: Yes - GENITOURINARY/GYNECOLOGICAL Hx Genitourinary Disorders: No - PSYCHIATRIC Hx Anxiety: Yes Hx Depression: Yes Hx Substance Use: No - SURGICAL HISTORY Hx Surgeries: Yes Hx Section: Yes Hx Open Heart Surgery: Yes Hx Valve Replacement: Yes - ANESTHESIA Hx Anesthesia: Yes Hx Anesthesia Reactions: No Meds Allergies/Adverse Reactions: Allergies Allergy/AdvReac Type Severity Reaction Status Date / Time No Known Allergies Allergy Verified 02/23/18 16:32 - Medications Medications: Current Medications Albuterol Sulfate (Albuterol 0.042% Inhal Anne (1.25mg/3ml) Ud) 1.25 mg INH RQ6 [facility] Clonazepam (Klonopin) 1 mg PO HS PRN PRN Reason: Anxiety Dabigatran (Pradaxa) 150 mg PO BID [facility] Last Admin: 05/14/18 09:28 Dose: 150 mg Fluoxetine HCl (Prozac) 20 mg PO DAILY [facility] Last Admin: 05/14/18 09:29 Dose: 20 mg Fluoxetine HCl (Prozac) 10 mg PO QPM [facility] Furosemide (Lasix) 40 mg PO BID [facility] Last Admin: 05/14/18 09:29 Dose: 40 mg Pantoprazole Sodium (Protonix Ec Tab) 40 mg PO DAILY [facility] Last Admin: 05/14/18 09:29 Dose: 40 mg Sacubitril/Valsartan (Entresto 24 Mg-26 Mg) 1 tab PO DAILY [facility] Results - Vital Signs Recent Vital Signs: Last Vital Signs Temp 98.1 F 05/14/18 05:00 Pulse 80 05/14/18 07:50 Resp 21 05/14/18 05:00 BP 120/62 05/14/18 09:29 Pulse Ox 100 05/14/18 05:00 - Labs Result Diagrams: 05/13/18 23:17 05/13/18 23:43 Labs: Laboratory Results - last 24 hr 05/13/18 05/13/18 05/13/18 23:17 23:17 23:43 WBC 10.3 RBC 4.96 Hgb 12.6 Hct 38.9 MCV 78.5 L MCH 25.4 L MCHC 32.3 L RDW 17.9 H Plt Count 668 H MPV 8.8 Neut % (Auto) 78.7 H Lymph % (Auto) 11.3 L [place] % (Auto) 8.6 Eos % (Auto) 0.7 Baso % (Auto) 0.7 Neut # (Auto) 8.1 H Lymph # (Auto) 1.2 [place] # (Auto) 0.9 H Eos # (Auto) 0.1 Baso # (Auto) 0.1 PT 15.8 H INR 1.4 APTT 55 H D-Dimer, Quantitative 381 H Sodium 136 Potassium 5.1 Chloride 100 Carbon Dioxide 30 Anion Gap 11 BUN 15 Creatinine 1.0 Est GFR ( Amer) > 60 Est GFR (Non-Af Amer) 56 Random Glucose 165 H D Calcium 9.0 Phosphorus 3.4 Magnesium 1.7 Total Bilirubin 0.3 AST 20 ALT 13 Alkaline Phosphatase 129 H D Total Creatine Kinase CK-MB (Mass) Troponin I 0.0300 NT-Pro-B Natriuret Pep 583 Total Protein 7.0 Albumin 4.0 Globulin 3.0 Albumin/Globulin Ratio 1.3 Urine Color Urine Clarity Urine pH Ur Specific [place] Urine Protein Urine Glucose (UA) Urine Ketones Urine Blood Urine Nitrate Urine Bilirubin Urine Urobilinogen Ur Leukocyte Esterase Urine WBC (Auto) Urine RBC (Auto) Ur Squamous Epith Cells Urine Bacteria Urine Opiates Screen Urine Methadone Screen Ur Barbiturates Screen Ur Phencyclidine Scrn Ur Amphetamines Screen U Benzodiazepines Scrn U Oth Cocaine Metabols U Cannabinoids Screen 05/14/18 05/14/18 05/14/18 05:05 05:05 07:35 WBC RBC Hgb Hct MCV MCH MCHC RDW Plt Count MPV Neut % (Auto) Lymph % (Auto) [place] % (Auto) Eos % (Auto) Baso % (Auto) Neut # (Auto) Lymph # (Auto) [place] # (Auto) Eos # (Auto) Baso # (Auto) PT INR APTT D-Dimer, Quantitative Sodium Potassium Chloride Carbon Dioxide Anion Gap BUN Creatinine Est GFR ( Amer) Est GFR (Non-Af Amer) Random Glucose Calcium Phosphorus Magnesium Total Bilirubin AST ALT Alkaline Phosphatase Total Creatine Kinase 27 L CK-MB (Mass) 0.49 Troponin I 0.0350 NT-Pro-B Natriuret Pep Total Protein Albumin Globulin Albumin/Globulin Ratio Urine Color Yellow Urine Clarity Clear Urine pH 7.0 Ur Specific [place] 1.018 Urine Protein Negative Urine Glucose (UA) Normal Urine Ketones Negative Urine Blood Negative Urine Nitrate Negative Urine Bilirubin Negative Urine Urobilinogen Normal Ur Leukocyte Esterase Neg Urine WBC (Auto) 1 Urine RBC (Auto) < 1 Ur Squamous Epith Cells 2 Urine Bacteria Rare Urine Opiates Screen Negative Urine Methadone Screen Negative Ur Barbiturates Screen Negative Ur Phencyclidine Scrn Negative Ur Amphetamines Screen Negative U Benzodiazepines Scrn Negative U Oth Cocaine Metabols Negative U Cannabinoids Screen Negative
[2018-05-14 17:15] LABS: CK-MB 0.32 ng/mL (0.0-3.38); TROPONIN I 0.026 ng/mL (0.00-0.120)
[2018-05-14] MEDS: Albuterol 0.042% Inhal Sol (1.25 mg/3 mL) UD INH SCH (20:24)
--- NOTE | 2018-05-14 22:30 | CP.PCM.HP ---
History of Present Illness - History of Present Illness History of Present Illness: 62-year-old female comes to the [facility] emergency room complaining of chest pain, shortness of breath and dyspnea. The past 3 days. patient has a long history of cardiac disease including valve replacement. She also suffers from and severe degenerative joint disease. She complains of severe lower extremity pain with difficulty ambulating. initial evaluation in ER is negative for infarction. Patient continues to complain o and admission was advised. Consultation with Dr. joshi is the patient's obiee lead developer was requested. Chest CT, abdominal CT and x-rays of both lower was requested Present on Admission - Present on Admission Any Indicators Present on Admission: No History of DVT/PE: No History of Uncontrolled Diabetes: No Urinary Catheter: No Decubitus Ulcer Present: No History Surgical Site Infection Following: None Review of Systems - Constitutional Constitutional: Fatigue, Weight Gain - Cardiovascular Cardiovascular: Chest Pain, Dyspnea - Gastrointestinal Gastrointestinal: Belching - Reproductive: Female Reproductive:Female: Menopausal - Musculoskeletal Musculoskeletal: Arthralgias - Integumentary Integumentary: Dry Skin - Psychiatric Psychiatric: Depression - Endocrine Endocrine: Fatigue Past Patient History - Infectious Disease Hx of Infectious Diseases: None - Tetanus Immunizations Tetanus Immunization: Up to Date - Past Medical History & Family History Past Medical History?: Yes - Past Social History Smoking Status: Former Smoker Chewing Tobacco Use: No Cigar Use: No Alcohol: None Drugs: Denies Home Situation {Lives}: With Family - CARDIAC Hx Atrial Fibrillation: Yes Hx Congestive Heart Failure: Yes Hx Hypertension: Yes Hx Mitral Valve Prolapse: Yes Hx Pacemaker: Yes - PULMONARY Hx Pulmonary Embolism: Yes - NEUROLOGICAL Hx Migraine: Yes - HEENT Hx HEENT Problems: No - RENAL Hx Chronic Kidney Disease: No - ENDOCRINE/METABOLIC Hx Endocrine Disorders: No - HEMATOLOGICAL/ONCOLOGICAL Hx Blood Disorders: No - INTEGUMENTARY Hx Dermatological Problems: No - MUSCULOSKELETAL/RHEUMATOLOGICAL Hx Arthritis: Yes Hx Falls: Yes Hx Rheumatoid Arthritis: Yes - GASTROINTESTINAL Hx Gastritis: Yes - GENITOURINARY/GYNECOLOGICAL Hx Genitourinary Disorders: No - PSYCHIATRIC Hx Anxiety: Yes Hx Depression: Yes Hx Substance Use: No - SURGICAL HISTORY Hx Surgeries: Yes Hx Section: Yes Hx Open Heart Surgery: Yes Hx Valve Replacement: Yes - ANESTHESIA Hx Anesthesia: Yes Hx Anesthesia Reactions: No Meds Allergies/Adverse Reactions: Allergies Allergy/AdvReac Type Severity Reaction Status Date / Time No Known Allergies Allergy Verified 02/23/18 16:32 Physical Exam - Constitutional Appears: Chronically Ill - Head Exam Head Exam: NORMOCEPHALIC - Eye Exam Eye Exam: Normal appearance Pupil Exam: NORMAL ACCOMODATION - ENT Exam ENT Exam: Normal Exam - Neck Exam Neck exam: Positive for: Normal Inspection - Respiratory Exam Respiratory Exam: Decreased Breath Sounds - Cardiovascular Exam Cardiovascular Exam: Systolic Murmur - GI/Abdominal Exam GI & Abdominal Exam: Distended, Normal Bowel Sounds - Rectal Exam Rectal Exam: Deferred - Extremities Exam Extremities exam: Positive for: tenderness - Back Exam Back exam: NORMAL INSPECTION - Neurological Exam Neurological exam: Oriented x3 - Psychiatric Exam Psychiatric exam: Depressed - Skin Skin Exam: Dry Results - Vital Signs Recent Vital Signs: Last Vital Signs Temp 98.1 F 05/14/18 05:00 Pulse 80 05/14/18 20:23 Resp 21 05/14/18 05:00 BP 130/70 05/14/18 18:43 Pulse Ox 100 05/14/18 05:00 - Labs Result Diagrams: 05/13/18 23:17 05/13/18 23:43 Labs: Laboratory Results - last 24 hr 05/13/18 05/13/18 05/13/18 23:17 23:17 23:43 WBC 10.3 RBC 4.96 Hgb 12.6 Hct 38.9 MCV 78.5 L MCH 25.4 L MCHC 32.3 L RDW 17.9 H Plt Count 668 H MPV 8.8 Neut % (Auto) 78.7 H Lymph % (Auto) 11.3 L [place] % (Auto) 8.6 Eos % (Auto) 0.7 Baso % (Auto) 0.7 Neut # (Auto) 8.1 H Lymph # (Auto) 1.2 [place] # (Auto) 0.9 H Eos # (Auto) 0.1 Baso # (Auto) 0.1 PT 15.8 H INR 1.4 APTT 55 H D-Dimer, Quantitative 381 H Sodium 136 Potassium 5.1 Chloride 100 Carbon Dioxide 30 Anion Gap 11 BUN 15 Creatinine 1.0 Est GFR ( Amer) > 60 Est GFR (Non-Af Amer) 56 Random Glucose 165 H D Calcium 9.0 Phosphorus 3.4 Magnesium 1.7 Total Bilirubin 0.3 AST 20 ALT 13 Alkaline Phosphatase 129 H D Total Creatine Kinase CK-MB (Mass) Troponin I 0.0300 NT-Pro-B Natriuret Pep 583 Total Protein 7.0 Albumin 4.0 Globulin 3.0 Albumin/Globulin Ratio 1.3 Urine Color Urine Clarity Urine pH Ur Specific [place] Urine Protein Urine Glucose (UA) Urine Ketones Urine Blood Urine Nitrate Urine Bilirubin Urine Urobilinogen Ur Leukocyte Esterase Urine WBC (Auto) Urine RBC (Auto) Ur Squamous Epith Cells Urine Bacteria Urine Opiates Screen Urine Methadone Screen Ur Barbiturates Screen Ur Phencyclidine Scrn Ur Amphetamines Screen U Benzodiazepines Scrn U Oth Cocaine Metabols U Cannabinoids Screen 05/14/18 05/14/18 05/14/18 05:05 05:05 07:35 WBC RBC Hgb Hct MCV MCH MCHC RDW Plt Count MPV Neut % (Auto) Lymph % (Auto) [place] % (Auto) Eos % (Auto) Baso % (Auto) Neut # (Auto) Lymph # (Auto) [place] # (Auto) Eos # (Auto) Baso # (Auto) PT INR APTT D-Dimer, Quantitative Sodium Potassium Chloride Carbon Dioxide Anion Gap BUN Creatinine Est GFR ( Amer) Est GFR (Non-Af Amer) Random Glucose Calcium Phosphorus Magnesium Total Bilirubin AST ALT Alkaline Phosphatase Total Creatine Kinase 27 L CK-MB (Mass) 0.49 Troponin I 0.0350 NT-Pro-B Natriuret Pep Total Protein Albumin Globulin Albumin/Globulin Ratio Urine Color Yellow Urine Clarity Clear Urine pH 7.0 Ur Specific [place] 1.018 Urine Protein Negative Urine Glucose (UA) Normal Urine Ketones Negative Urine Blood Negative Urine Nitrate Negative Urine Bilirubin Negative Urine Urobilinogen Normal Ur Leukocyte Esterase Neg Urine WBC (Auto) 1 Urine RBC (Auto) < 1 Ur Squamous Epith Cells 2 Urine Bacteria Rare Urine Opiates Screen Negative Urine Methadone Screen Negative Ur Barbiturates Screen Negative Ur Phencyclidine Scrn Negative Ur Amphetamines Screen Negative U Benzodiazepines Scrn Negative U Oth Cocaine Metabols Negative U Cannabinoids Screen Negative 05/14/18 16:29 WBC RBC Hgb Hct MCV MCH MCHC RDW Plt Count MPV Neut % (Auto) Lymph % (Auto) [place] % (Auto) Eos % (Auto) Baso % (Auto) Neut # (Auto) Lymph # (Auto) [place] # (Auto) Eos # (Auto) Baso # (Auto) PT INR APTT D-Dimer, Quantitative Sodium Potassium Chloride Carbon Dioxide Anion Gap BUN Creatinine Est GFR ( Amer) Est GFR (Non-Af Amer) Random Glucose Calcium Phosphorus Magnesium Total Bilirubin AST ALT Alkaline Phosphatase Total Creatine Kinase 29 L CK-MB (Mass) 0.32 Troponin I 0.0260 NT-Pro-B Natriuret Pep Total Protein Albumin Globulin Albumin/Globulin Ratio Urine Color Urine Clarity Urine pH Ur Specific [place] Urine Protein Urine Glucose (UA) Urine Ketones Urine Blood Urine Nitrate Urine Bilirubin Urine Urobilinogen Ur Leukocyte Esterase Urine WBC (Auto) Urine RBC (Auto) Ur Squamous Epith Cells Urine Bacteria Urine Opiates Screen Urine Methadone Screen Ur Barbiturates Screen Ur Phencyclidine Scrn Ur Amphetamines Screen U Benzodiazepines Scrn U Oth Cocaine Metabols U Cannabinoids Screen Assessment & Plan (1) Ambulatory dysfunction Status: Acute (2) Chest pain Status: Acute (3) Degenerative joint disease involving multiple joints Status: Acute (4) Dyspnea on exertion Status: Acute
--- NOTE | 2018-05-15 01:18 | CON ---
DATE: 05/14/2018 HISTORY OF PRESENT ILLNESS: This is a 62-year-old lady with history of hypertension, cardiac arrhythmia, mitral valve prolapse and mitral valve replacement, depression, obesity, arthritis, CHF, and bronchitis, now admitted with chest pain and dyspnea and general weakness, headache. On treatment in the hospital, dyspnea and chest pain gradually subsided. She does not bring up phlegm although she has now less likely dry cough with no hemoptysis, no hematemesis. There has been no seizures. No abdominal pain. She is nonsmoker. Does not drink alcohol. Does not chews, and does not have substance abuse. PAST HISTORY: As stated above includes hypertension, cardiac arrhythmias, mitral valve replacement, obesity, arthritis, depression, systemic symptoms as reported above with shortness of breath, chest pain, headache. No significant urinary symptoms. No abdominal pain but complains of arthritic pain and muscle pain. PHYSICAL EXAMINATION: GENERAL: The patient is markedly overweight. She is afebrile. VITAL SIGNS: Her blood pressure 120/62, respirations 20, pulse 80 permanent. HEENT: Unremarkable. There is no thyromegaly. No lymphadenopathy. EXTREMITIES: Deep tendon reflexes unremarkable. Somewhat sluggish. LABORATORY DATA: Chest x-ray shows bilateral lower zone haze, large heart, and suggestive of congestive changes. White count is 10,300, hemoglobin 12.6, platelet count 668,000. INR is 1.4. D-dimer is 381. BUN 15, creatinine 1. Random glucose 165. Calcium 9, AST of 1.7, alkaline phosphatase 129. Troponin 0.03. Pro-BNP is 583. Albumin for urine unremarkable. Opioid screen, methadone screen, cocaine screen, cannabinoid screen are all reported negative. IMPRESSION: Respiratory insufficiency, cardiac arrhythmias, hypertensive cardiovascular disease, congestive heart failure, bronchitis, also history of liver thrombosis. The patient is now on anticoagulant. She is not seen by manager enterprise content management. PLAN: Continue with the current medications including bronchodilators, vasodilators, and antiarrhythmics as prescribed by manager enterprise content management and continue with anticoagulants and diuretics as indicated. Continue on oxygen prescribed BiPAP therapy . Dion Turner MD
[2018-05-15] MEDS: Albuterol 0.042% Inhal Sol (1.25 mg/3 mL) UD INH SCH ×4 (01:32→19:23)
[2018-05-15 08:08] LABS: TROPONIN I 0.02 ng/mL (0.00-0.120)
[2018-05-15 08:47] LABS: FREE T4 0.95 ng/dL (0.78-2.19)
[2018-05-15] MEDS: Pantoprazole 40 mg EC Tab PO SCH (10:09)
[2018-05-15] MEDS: Sacubitril/Valsartan 24-26mg Tab PO SCH (12:31)
[2018-05-15 15:15] LABS: ANTI STREPTOLYSIN O NEGATIVE (NEGATIVE)
--- NOTE | 2018-05-15 21:57 | CP.PCM.PN ---
Subjective - Date & Time of Evaluation Date of Evaluation: 05/14/18 Time of Evaluation: 13:15 - Subjective Subjective: patient still complaining of knee pain. CT scan of the abdomen reveals small cyst at the lower pole of the left kidney, mild constipation, and diverticulitis. X-ray of the knee reveals mild narrowing. Will request thyroid studies. Objective - Vital Signs/Intake and Output Vital Signs (last 24 hours): Temp Pulse Resp BP Pulse Ox 97 F L 81 20 120/83 95 05/15/18 15:51 05/15/18 15:51 05/15/18 15:51 05/15/18 17:20 05/15/18 15:51 - Medications Medications: Current Medications Acetaminophen (Tylenol 325mg Tab) 650 mg PO Q6 PRN PRN Reason: Pain, Mild (1-3) Last Admin: 05/15/18 18:51 Dose: 650 mg Albuterol Sulfate (Albuterol 0.042% Inhal Anne (1.25mg/3ml) Ud) 1.25 mg INH RQ6 [facility] Last Admin: 05/15/18 19:23 Dose: Not Given Clonazepam (Klonopin) 1 mg PO HS PRN PRN Reason: Anxiety Last Admin: 05/14/18 22:09 Dose: 1 mg Dabigatran (Pradaxa) 150 mg PO BID [facility] Last Admin: 05/15/18 17:20 Dose: 150 mg Fluoxetine HCl (Prozac) 20 mg PO DAILY [facility] Last Admin: 05/15/18 10:09 Dose: 20 mg Fluoxetine HCl (Prozac) 10 mg PO QPM [facility] Last Admin: 05/15/18 17:20 Dose: 10 mg Furosemide (Lasix) 40 mg PO BID [facility] Last Admin: 05/15/18 17:20 Dose: 40 mg Ketorolac Tromethamine (Toradol) 30 mg IVP Q8 PRN PRN Reason: 5-10 pain scale Last Admin: 05/15/18 20:17 Dose: 30 mg Pantoprazole Sodium (Protonix Ec Tab) 40 mg PO DAILY [facility] Last Admin: 05/15/18 10:09 Dose: 40 mg Sacubitril/Valsartan (Entresto 24 Mg-26 Mg) 1 tab PO DAILY [facility] Last Admin: 05/15/18 12:31 Dose: 1 tab - Labs Labs: 05/13/18 23:17 05/13/18 23:43 PT 15.8 SECONDS (9.7-12.2) H 05/13/18 23:17 INR 1.4 05/13/18 23:17 APTT 55 SECONDS (21-34) H 05/13/18 23:17 - Constitutional Appears: Chronically Ill - Head Exam Head Exam: NORMOCEPHALIC - Eye Exam Eye Exam: Normal appearance Pupil Exam: NORMAL ACCOMODATION - ENT Exam ENT Exam: Normal Exam - Neck Exam Neck Exam: Normal Inspection - Respiratory Exam Respiratory Exam: Decreased Breath Sounds, NORMAL BREATHING PATTERN - GI/Abdominal Exam GI & Abdominal Exam: Normal Bowel Sounds - Exam Exam: NORMAL INSPECTION - Extremities Exam Extremities Exam: Tenderness - Back Exam Back Exam: NORMAL INSPECTION - Neurological Exam Neurological Exam: Oriented x3 - Skin Skin Exam: Dry Assessment and Plan (1) Ambulatory dysfunction Status: Acute (2) Chest pain Status: Acute (3) Degenerative joint disease involving multiple joints Status: Acute (4) Dyspnea on exertion Status: Acute
--- NOTE | 2018-05-15 23:13 | CARD ---
APPROVED REPORT Date of service: 05/14/2018 EXAM: Two-dimensional and M-mode echocardiogram with Doppler and color Doppler. INDICATION Dyspnea Atrial Fibrillation Pulmonary Embolism Chest Pain MVP RISK FACTORS Hypertension 2D DIMENSIONS IVSd0.9 (0.7-1.1cm)LVDd5.2 (3.9-5.9cm) PWd0.9 (0.7-1.1cm)LA Ubdwtw13 (18-58mL) LVDs3.8 (2.5-4.0cm)FS (%) 28.0 % LVEF (%)53.8 (>50%)LVEF (Wu's)62.31 % M-Mode DIMENSIONS Left Atrium (MM)4.34 (2.5-4.0cm)IVSd0.88 (0.7-1.1cm) Aortic Root3.03 (2.2-3.7cm)LVDd4.82 (4.0-5.6cm) Aortic Cusp Exc.1.76 (1.5-2.0cm)PWd1.08 (0.7-1.1cm) FS (%) 26 %LVDs3.55 (2.0-3.8cm) LVEF (%)51 (>50%) Mitral Valve MV E Rdgopseu469.1cm/sMV E Peak Gr.13mmHgMV A Arcthxep45.0cm/s MV E Mean Gr.7mmHgMV DWB862twD/A ratio2.6 MVA (PHT)1.99cm2 TDI E/Lateral E'0.0E/Medial E'0.0 Tricuspid Valve TR Peak Soudrtvg614ss/sTR Peak Gr.[id number] LEFT VENTRICLE The left ventricle is normal size. There is normal left ventricular wall thickness. The left ventricular function is normal. The left ventricular ejection fraction is within the normal range. There is normal LV segmental wall motion. RIGHT VENTRICLE The right ventricle is normal size. ATRIA The left atrium is mildly dilated. The right atrium size is normal. AORTIC VALVE The aortic valve is normal in structure. MITRAL VALVE Bioprosthetic Mitarl valve with trace regurgitation. TRICUSPID VALVE There is mild to moderate tricuspid regurgitation. <Conclusion> Normal LV systolic finction. Borderline dilated LA. Bioprosthetic Mitral valve with trace regirgitation. Miildly dilated LA. Midl tomoderate TR.
[2018-05-16] MEDS: Albuterol 0.042% Inhal Sol (1.25 mg/3 mL) UD INH SCH ×4 (01:05→19:24)
[2018-05-16] MEDS: Sacubitril/Valsartan 24-26mg Tab PO SCH (10:01)
[2018-05-16] MEDS: Pantoprazole 40 mg EC Tab PO SCH (10:02)
[2018-05-16 18:55] LABS: SQUAMOUS EPITHIAL < 1 /hpf (0-5); URINE BILIRUBIN NEGATIVE (NEGATIVE); URINE BLOOD NEGATIVE (NEGATIVE); URINE CLARITY Hazy (Clear); URINE COLOR Yellow (YELLOW); URINE GLUCOSE (UA) NORMAL (Normal); URINE LEUKOCYTE ESTERASE 3+ Leu/uL (Negative); URINE PROTEIN 1+ mg/dL (NEGATIVE); URINE UROBILINOGEN NORMAL mg/dL (0.2-1.0)
--- NOTE | 2018-05-16 22:04 | CP.PCM.PN ---
Subjective - Date & Time of Evaluation Date of Evaluation: 05/16/18 Time of Evaluation: 15:35 - Subjective Subjective: patient is alert and responsive. She still complain of right knee pain. Results of thyroid ultrasound pending. Urinalysis done on May 14 was within normal l limits. Another request fo a repeat urinalysis was made today. Laboratories rheumatoid arthritis and thyroid levels are pending. Continue present supportive measures. Objective - Vital Signs/Intake and Output Vital Signs (last 24 hours): Temp Pulse Resp BP Pulse Ox 98 F 80 22 87/58 L 96 05/16/18 16:30 05/16/18 16:30 05/16/18 16:30 05/16/18 17:30 05/16/18 16:30 - Medications Medications: Current Medications Acetaminophen (Tylenol 325mg Tab) 650 mg PO Q6 PRN PRN Reason: Pain, Mild (1-3) Last Admin: 05/16/18 12:13 Dose: 650 mg Albuterol Sulfate (Albuterol 0.042% Inhal Anne (1.25mg/3ml) Ud) 1.25 mg INH RQ6 [facility] Last Admin: 05/16/18 19:24 Dose: 1.25 mg Clonazepam (Klonopin) 1 mg PO HS PRN PRN Reason: Anxiety Last Admin: 05/16/18 21:41 Dose: 1 mg Dabigatran (Pradaxa) 150 mg PO BID [facility] Last Admin: 05/16/18 17:29 Dose: 150 mg Fluoxetine HCl (Prozac) 20 mg PO DAILY [facility] Last Admin: 05/16/18 10:02 Dose: 20 mg Fluoxetine HCl (Prozac) 10 mg PO QPM [facility] Last Admin: 05/16/18 17:29 Dose: 10 mg Furosemide (Lasix) 40 mg PO BID [facility] Last Admin: 05/16/18 17:30 Dose: Not Given Ketorolac Tromethamine (Toradol) 30 mg IVP Q8 PRN PRN Reason: 5-10 pain scale Last Admin: 05/16/18 21:41 Dose: 30 mg Pantoprazole Sodium (Protonix Ec Tab) 40 mg PO DAILY [facility] Last Admin: 05/16/18 10:02 Dose: 40 mg Sacubitril/Valsartan (Entresto 24 Mg-26 Mg) 1 tab PO DAILY [facility] Last Admin: 05/16/18 10:01 Dose: 1 tab - Labs Labs: 05/13/18 23:17 05/13/18 23:43 PT 15.8 SECONDS (9.7-12.2) H 05/13/18 23:17 INR 1.4 05/13/18 23:17 APTT 55 SECONDS (21-34) H 05/13/18 23:17 - Constitutional Appears: Chronically Ill - Head Exam Head Exam: NORMOCEPHALIC - Eye Exam Eye Exam: Normal appearance Pupil Exam: NORMAL ACCOMODATION - ENT Exam ENT Exam: Normal Exam - Neck Exam Neck Exam: Normal Inspection - Respiratory Exam Respiratory Exam: Decreased Breath Sounds - Cardiovascular Exam Cardiovascular Exam: REGULAR RHYTHM - Rectal Exam Rectal Exam: Deferred, NORMAL INSPECTION - Extremities Exam Extremities Exam: Tenderness - Back Exam Back Exam: NORMAL INSPECTION - Neurological Exam Neurological Exam: Oriented x3 - Psychiatric Exam Psychiatric exam: Depressed - Skin Skin Exam: Dry Assessment and Plan (1) Ambulatory dysfunction Status: Acute (2) Chest pain Status: Acute (3) Degenerative joint disease involving multiple joints Status: Acute (4) Dyspnea on exertion Status: Acute
[2018-05-17] MEDS: Albuterol 0.042% Inhal Sol (1.25 mg/3 mL) UD INH SCH ×4 (01:02→19:07)
[2018-05-17] MEDS: Pantoprazole 40 mg EC Tab PO SCH (09:21)
[2018-05-17] MEDS: Sacubitril/Valsartan 24-26mg Tab PO SCH (09:22)
[2018-05-17 09:50] LABS: FREE T4 0.86 ng/dL (0.78-2.19)
--- NOTE | 2018-05-17 13:48 | US ---
Date of service: 05/15/2018 HISTORY: thyroid nodule TECHNIQUE: Grayscale imaging was performed. COMPARISON: None FINDINGS: RIGHT LOBE: Measures 4.3 x 2.0 x 2.7 cm. Normal echotexture and flow. Nodules: There is a 2.5 x 1.5 x 2.6 cm complex cystic nodule in the interpolar region without significant central or peripheral increased vascularity and a 1.5 x 1.4 x 2.0 cm isoechoic nodule without significant central or peripheral increased vascularity in the lower pole. LEFT LOBE: Measures 5.1 x 2.1 x 2.1 cm. Normal echotexture and flow. Nodules: There is a 1.8 x 1.1 x 1.8 cm isoechoic nodule with mild peripheral increased vascularity in the upper pole, 1.3 x 1.1 x 1.2 cm complex nodule without increased vascularity in the interpolar region and 2.1 x 1.6 x 2.0 cm isoechoic nodule with eccentric coarse calcification without increased vascularity in the lower pole. ISTHMUS: Measures 0.2 cm. Normal echotexture and flow. Nodules: None OTHER FINDINGS: None . IMPRESSION: Enlarged multinodular thyroid gland with a dominant 2.5 x 1.5 x 2.6 cm complex cystic nodule in the right interpolar region.
[2018-05-17 14:01] LABS: RNP <1.0 AI (<1.0)
--- NOTE | 2018-05-17 22:22 | CARD ---
APPROVED REPORT Date of service: 05/13/2018 EKG Measurement Heart [id number] NM P42 [id number] <Conclusion> Ventricular-paced rhythm with intrinsic complexes Abnormal ECG
[2018-05-18] MEDS: Albuterol 0.042% Inhal Sol (1.25 mg/3 mL) UD INH SCH ×4 (01:16→20:33)
[2018-05-18] MEDS: Sacubitril/Valsartan 24-26mg Tab PO SCH (09:18)
[2018-05-18] MEDS: Pantoprazole 40 mg EC Tab PO SCH (09:18)
[2018-05-18 11:37] LABS: BASO % 0.3 % (0.0-2.0); EOS # 0.1 K/uL (0.0-0.7); EOS % 1.6 % (0.0-4.0); HEMOGLOBIN 11.2 g/dL (11.0-16.0); LYMPH # 1.1 K/uL (1.0-4.3); LYMPH % 13.1 % (20.0-40.0); MEAN CELL VOLUME 78.8 fL (81.0-99.0); MEAN CORPUSCULAR HEMOGLOBIN 24.7 pg (27.0-31.0); MEAN CORPUSCULAR HGB CONC 31.3 g/dL (33.0-37.0); MEAN PLATELET VOLUME 8.8 fL (7.2-11.7); MONO # 0.6 K/uL (0.0-0.8); MONO % 7.9 % (0.0-10.0); NEUT # 6.2 K/uL (1.8-7.0); NEUT % 77.1 % (50.0-75.0); RBC 4.54 Mil/uL (3.80-5.20); RED CELL DISTRIBUTION WIDTH 17.9 % (11.5-14.5); WHITE BLOOD COUNT 8.1 K/uL (4.8-10.8)
[2018-05-18 11:51] LABS: CALCIUM 8.7 mg/dl (8.6-10.4)
--- NOTE | 2018-05-18 19:42 | PN ---
DATE: 05/18/2018 SUBJECTIVE: The patient is alert, oriented, sitting in chair. Her dyspnea is . There is no chest pain. Cough has subsided. General discomfort persists. There is no fever, no chills. PHYSICAL EXAMINATION: VITAL SIGNS: Her pulse is 80 per minute, blood pressure 106/70, respirations 20, and hemoglobin oxygen saturation of 95%. HEART: Regular. No gallop rhythm. LUNGS: Rhonchi subsided over lung arnett. ABDOMEN: Soft. EXTREMITIES: Bilateral leg edema decreasing. LABORATORY DATA: White count is 8100, hemoglobin 11.2, platelet count is 701. Sodium 136, potassium 4.2, chloride 97, BUN 28, creatinine 1.2, glucose 144. IMPRESSION: Respiratory insufficiency, hypertensive cardiovascular disease, diabetes mellitus, urosepsis, obesity. PLAN: Continue with current medications and current bronchodilators, vasodilators, cardiac followup, anticoagulants and BiPAP therapy. Dion Turner MD
--- NOTE | 2018-05-18 22:46 | CP.PCM.PN ---
Subjective - Date & Time of Evaluation Date of Evaluation: 05/18/18 Time of Evaluation: 13:10 - Subjective Subjective: patient oriented in all 3 spheres. I informed the family and patient of the presence of a nodule on the left lobe of the thyroid gland. I explained that we needed a biopsy to identify the type of nodule. family consented to having procedure done. Objective - Vital Signs/Intake and Output Vital Signs (last 24 hours): Temp Pulse Resp BP Pulse Ox 97.8 F 80 20 104/64 96 05/18/18 15:21 05/18/18 16:30 05/18/18 15:21 05/18/18 15:21 05/18/18 15:21 Intake and Output: 05/18/18 05/19/18 18:59 06:59 Intake Total 450 Balance 450 - Medications Medications: Current Medications Acetaminophen (Tylenol 325mg Tab) 650 mg PO Q6 PRN PRN Reason: Pain, Mild (1-3) Last Admin: 05/16/18 12:13 Dose: 650 mg Albuterol Sulfate (Albuterol 0.042% Inhal Anne (1.25mg/3ml) Ud) 1.25 mg INH RQ6 CANDELARIA Last Admin: 05/18/18 20:33 Dose: 1.25 mg Clonazepam (Klonopin) 1 mg PO HS PRN PRN Reason: Anxiety Last Admin: 05/18/18 22:04 Dose: 1 mg Dabigatran (Pradaxa) 150 mg PO BID [facility] TO [facility] Last Admin: 05/18/18 17:23 Dose: 150 mg Fluoxetine HCl (Prozac) 20 mg PO DAILY CANDELARIA Last Admin: 05/18/18 09:19 Dose: 20 mg Fluoxetine HCl (Prozac) 10 mg PO QPM CANDELARIA Last Admin: 05/18/18 17:24 Dose: 10 mg Furosemide (Lasix) 40 mg PO BID [facility] Last Admin: 05/18/18 17:24 Dose: Not Given Ceftriaxone Sodium 1 gm/ (Sodium Chloride) 100 mls @ 100 mls/hr IVPB DAILY [facility]; Protocol Ketorolac Tromethamine (Toradol) 30 mg IVP Q8 PRN PRN Reason: 5-10 pain scale Last Admin: 05/18/18 21:19 Dose: 30 mg Pantoprazole Sodium (Protonix Ec Tab) 40 mg PO DAILY [facility] Last Admin: 05/18/18 09:18 Dose: 40 mg Sacubitril/Valsartan (Entresto 24 Mg-26 Mg) 1 tab PO DAILY CANDELARIA Last Admin: 05/18/18 09:18 Dose: 1 tab - Labs Labs: 05/18/18 11:21 05/18/18 11:21 PT 15.8 SECONDS (9.7-12.2) H 05/13/18 23:17 INR 1.4 05/13/18 23:17 APTT 55 SECONDS (21-34) H 05/13/18 23:17 - Constitutional Appears: Chronically Ill - Head Exam Head Exam: NORMOCEPHALIC - Eye Exam Eye Exam: Normal appearance Pupil Exam: NORMAL ACCOMODATION - ENT Exam ENT Exam: Normal Exam - Neck Exam Neck Exam: Normal Inspection - Respiratory Exam Respiratory Exam: Decreased Breath Sounds - Cardiovascular Exam Cardiovascular Exam: REGULAR RHYTHM - GI/Abdominal Exam GI & Abdominal Exam: Normal Bowel Sounds - Rectal Exam Rectal Exam: Deferred - Extremities Exam Extremities Exam: Pedal Edema - Back Exam Back Exam: NORMAL INSPECTION - Neurological Exam Neurological Exam: Oriented x3 - Psychiatric Exam Psychiatric exam: Depressed - Skin Skin Exam: Dry Assessment and Plan (1) Ambulatory dysfunction Status: Acute (2) Chest pain Status: Acute (3) Degenerative joint disease involving multiple joints Status: Acute (4) Dyspnea on exertion Status: Acute
[2018-05-19] MEDS: Albuterol 0.042% Inhal Sol (1.25 mg/3 mL) UD INH SCH ×4 (01:16→19:54)
[2018-05-19 07:42] LABS: BASO # 0.1 K/uL (0.0-0.2); BASO % 0.7 % (0.0-2.0); EOS # 0.1 K/uL (0.0-0.7); EOS % 1.7 % (0.0-4.0); HEMOGLOBIN 11.9 g/dL (11.0-16.0); LYMPH # 1.2 K/uL (1.0-4.3); LYMPH % 16.2 % (20.0-40.0); MEAN CELL VOLUME 79.2 fL (81.0-99.0); MEAN CORPUSCULAR HEMOGLOBIN 24.9 pg (27.0-31.0); MEAN CORPUSCULAR HGB CONC 31.4 g/dL (33.0-37.0); MEAN PLATELET VOLUME 8.7 fL (7.2-11.7); MONO # 0.7 K/uL (0.0-0.8); MONO % 8.8 % (0.0-10.0); NEUT # 5.4 K/uL (1.8-7.0); NEUT % 72.6 % (50.0-75.0); RBC 4.78 Mil/uL (3.80-5.20); RED CELL DISTRIBUTION WIDTH 18.4 % (11.5-14.5); WHITE BLOOD COUNT 7.5 K/uL (4.8-10.8)
[2018-05-19] MEDS: Pantoprazole 40 mg EC Tab PO SCH (09:02)
[2018-05-19] MEDS: Sacubitril/Valsartan 24-26mg Tab PO SCH (10:00)
--- NOTE | 2018-05-19 22:17 | CP.PCM.PN ---
Subjective - Date & Time of Evaluation Date of Evaluation: 05/19/18 Time of Evaluation: 19:05 - Subjective Subjective: patient in no distress. She is oriented in all 3 spheres. Patient has mild edema in both lower extremities. Patient awaiting biopsy of thyroid nodule. We are also waiti lab results for rheumatoid factor. Objective - Vital Signs/Intake and Output Vital Signs (last 24 hours): Temp Pulse Resp BP Pulse Ox 97.9 F 80 20 89/53 L 96 05/19/18 15:05 05/19/18 16:15 05/19/18 15:05 05/19/18 17:32 05/19/18 15:05 Intake and Output: 05/19/18 05/20/18 18:59 06:59 Intake Total 500 Balance 500 - Medications Medications: Current Medications Acetaminophen (Tylenol 325mg Tab) 650 mg PO Q6 PRN PRN Reason: Pain, Mild (1-3) Last Admin: 05/16/18 12:13 Dose: 650 mg Albuterol Sulfate (Albuterol 0.042% Inhal Anne (1.25mg/3ml) Ud) 1.25 mg INH RQ6 CANDELARIA Last Admin: 05/19/18 19:54 Dose: 1.25 mg Clonazepam (Klonopin) 1 mg PO HS PRN PRN Reason: Anxiety Last Admin: 05/19/18 21:50 Dose: 1 mg Dabigatran (Pradaxa) 150 mg PO BID [facility] Last Admin: 05/19/18 17:31 Dose: 150 mg Fluoxetine HCl (Prozac) 20 mg PO DAILY CANDELARIA Last Admin: 05/19/18 09:03 Dose: 20 mg Fluoxetine HCl (Prozac) 10 mg PO QPM CANDELARIA Last Admin: 05/19/18 17:32 Dose: 10 mg Furosemide (Lasix) 40 mg PO BID CANDELARIA Last Admin: 05/19/18 17:32 Dose: Not Given Ceftriaxone Sodium 1 gm/ (Sodium Chloride) 100 mls @ 100 mls/hr IVPB DAILY CAN[facility]; Protocol Last Admin: 05/19/18 11:30 Dose: 100 mls/hr Ketorolac Tromethamine (Toradol) 30 mg IVP Q8 PRN PRN Reason: 5-10 pain scale Last Admin: 05/19/18 12:15 Dose: 30 mg Pantoprazole Sodium (Protonix Ec Tab) 40 mg PO DAILY [facility] Last Admin: 05/19/18 09:02 Dose: 40 mg Sacubitril/Valsartan (Entresto 24 Mg-26 Mg) 1 tab PO DAILY [facility] Last Admin: 05/19/18 10:00 Dose: 1 tab - Labs Labs: 05/19/18 07:20 05/19/18 07:20 PT 15.8 SECONDS (9.7-12.2) H 05/13/18 23:17 INR 1.4 05/13/18 23:17 APTT 55 SECONDS (21-34) H 05/13/18 23:17 - Constitutional Appears: Chronically Ill - Head Exam Head Exam: NORMOCEPHALIC - Eye Exam Eye Exam: Normal appearance Pupil Exam: NORMAL ACCOMODATION - ENT Exam ENT Exam: Normal Exam - Neck Exam Neck Exam: Normal Inspection - Respiratory Exam Respiratory Exam: Decreased Breath Sounds - Cardiovascular Exam Cardiovascular Exam: REGULAR RHYTHM - GI/Abdominal Exam GI & Abdominal Exam: Normal Bowel Sounds - Rectal Exam Rectal Exam: Deferred - Extremities Exam Extremities Exam: Pedal Edema - Back Exam Back Exam: NORMAL INSPECTION - Neurological Exam Neurological Exam: Oriented x3 - Psychiatric Exam Psychiatric exam: Depressed - Skin Skin Exam: Dry Assessment and Plan (1) Ambulatory dysfunction Status: Acute (2) Chest pain Status: Acute (3) Degenerative joint disease involving multiple joints Status: Acute (4) Dyspnea on exertion Status: Acute
[2018-05-20] MEDS: Albuterol 0.042% Inhal Sol (1.25 mg/3 mL) UD INH SCH ×3 (01:04→13:24)
--- NOTE | 2018-05-20 06:20 | PN ---
DATE: 05/19/2018 SUBJECTIVE: The patient was in bed, alert. PHYSICAL EXAMINATION: VITAL SIGNS: Afebrile, pulse 80, respirations 20, blood pressure 104/70, hemoglobin oxygen saturation of 96% on room air. HEART: Regular. There is no gallop rhythm. LUNGS: Diminished breath sounds over the lung bases with occasional rhonchi. ABDOMEN: Soft. EXTREMITIES: Leg edema subsiding. DIAGNOSTIC DATA: Chest x-ray, congestive changes. CT chest reported by the radiologist showing no pulmonary embolus in the central large vessels. The patient was seen by fireworks inspector. The patient was on bronchodilators and anticoagulants and has ceftriaxone and on BiPAP therapy. IMPRESSION: Respiratory insufficiency, hypertensive cardiovascular disease, obesity, degenerative joint disease, congestive heart failure. PLAN: Continue as dictated. Dion Turner MD
[2018-05-20 07:29] LABS: INR 1.5; PROTHROMBIN TIME 16.3 SECONDS (9.7-12.2)
[2018-05-20] MEDS: Sacubitril/Valsartan 24-26mg Tab PO SCH (10:47)
[2018-05-20] MEDS: Pantoprazole 40 mg EC Tab PO SCH (10:48)
--- NOTE | 2018-05-20 15:38 | CP.PCM.PN ---
Subjective - Date & Time of Evaluation Date of Evaluation: 05/20/18 Time of Evaluation: 11:30 - Subjective Subjective: Patient seen today states sob and cough improved , denies any chest pain, dizziness, palpitations , daughter at bed sdi e vss and labs reviewed- stable and a febrile Objective - Vital Signs/Intake and Output Vital Signs (last 24 hours): Temp Pulse Resp BP Pulse Ox 97.9 F 80 18 118/60 98 05/20/18 08:00 05/20/18 08:00 05/20/18 08:00 05/20/18 10:48 05/20/18 08:00 Intake and Output: 05/20/18 05/20/18 06:59 18:59 Intake Total 580 Balance 580 - Medications Medications: Current Medications Acetaminophen (Tylenol 325mg Tab) 650 mg PO Q6 PRN PRN Reason: Pain, Mild (1-3) Last Admin: 05/16/18 12:13 Dose: 650 mg Albuterol Sulfate (Albuterol 0.042% Inhal Anne (1.25mg/3ml) Ud) 1.25 mg INH RQ6 ACNDELARIA Last Admin: 05/20/18 13:24 Dose: 1.25 mg Clonazepam (Klonopin) 1 mg PO HS PRN PRN Reason: Anxiety Last Admin: 05/19/18 21:50 Dose: 1 mg Dabigatran (Pradaxa) 150 mg PO BID [facility] Last Admin: 05/20/18 10:48 Dose: 150 mg Fluoxetine HCl (Prozac) 20 mg PO DAILY CANDELARIA Last Admin: 05/20/18 10:49 Dose: 20 mg Fluoxetine HCl (Prozac) 10 mg PO QPM CANDELARIA Last Admin: 05/19/18 17:32 Dose: 10 mg Furosemide (Lasix) 40 mg PO BID CANDELARIA Last Admin: 05/20/18 10:48 Dose: 40 mg Ceftriaxone Sodium 1 gm/ (Sodium Chloride) 100 mls @ 100 mls/hr IVPB DAILY [facility]; Protocol Last Admin: 05/20/18 10:53 Dose: 100 mls/hr Ketorolac Tromethamine (Toradol) 30 mg IVP Q8 PRN PRN Reason: 5-10 pain scale Last Admin: 05/19/18 23:50 Dose: 30 mg Pantoprazole Sodium (Protonix Ec Tab) 40 mg PO DAILY [facility] Last Admin: 05/20/18 10:48 Dose: 40 mg Sacubitril/Valsartan (Entresto 24 Mg-26 Mg) 1 tab PO DAILY CANDELARIA Last Admin: 05/20/18 10:47 Dose: 1 tab - Labs Labs: 05/19/18 07:20 05/19/18 07:20 PT 16.3 SECONDS (9.7-12.2) H 05/20/18 07:04 INR 1.5 05/20/18 07:04 APTT 55 SECONDS (21-34) H 05/13/18 23:17 Assessment and Plan - Assessment and Plan (Free Text) Assessment: 62 YR OLD F emale with pmhx of Arthritis, Atrial Fibrillation, CHF, Depression, Gastritis, HTN, Migraine, Mitral Valve Prolapse, Pulmonary Embolism, Rheumatoid Arthritis admitted with ches tpain and dyspnea on exertion troponin x 3 negative patient clinically improved with neb treatment urine culture- + for proteus .M and sensitive to rocephin an d started on IV rocephin , repeat u/a negative Patient received 3 dose of iv rocephin and will discharge her with po keflex x 4 more days tHYROID us shows - Enlarged multinodular thyroid gland with a dominant 2.5 x 1.5 x 2.6 cm complex cystic nodule in the right interpolar region. Dr. Retana consulted for biopsy D/w Dr. Retana , patient on pradaxa and incr. risk of bleeding , defer to out patient biopsy D/w DR. Ocampo, cleared for discharge home today and f/u wiht his office in 1 week and out patient thyroid biopsy d/c with [facility] , who understands and agrees with plan ( information given to daughter reg. thyroid biopsy - [facility] dept. will contact her with date and time of biopsy and when to hold pradaxa) Home care services arranged by [facility]
[2018-05-20 15:40] LABS: SQUAMOUS EPITHIAL 3 /hpf (0-5); URINE BACTERIA OCC (<OCC); URINE BILIRUBIN NEGATIVE (NEGATIVE); URINE BLOOD NEGATIVE (NEGATIVE); URINE CLARITY Clear (Clear); URINE COLOR Yellow (YELLOW); URINE GLUCOSE (UA) NORMAL (Normal); URINE LEUKOCYTE ESTERASE NEG Leu/uL (Negative); URINE PROTEIN NEGATIVE (NEGATIVE); URINE UROBILINOGEN NORMAL mg/dL (0.2-1.0)
[2018-05-20 16:52] VITALS: BP 129/84; PULSE 78; RESP 20; TEMP 98.3; O2SAT 96
--- NOTE | 2018-05-20 19:50 | PN ---
DATE: 05/20/2018 SUBJECTIVE: The patient is alert and oriented. PHYSICAL EXAMINATION: VITAL SIGNS: Afebrile, blood pressure 118/60, pulse 80, respirations 18, hemoglobin oxygen saturation of 98% on room air. GENERAL: Her family is sitting by her side. The patient is not in distress. There is no acute chest pain. Dyspnea is subsiding. HEART: Regular. No gallop rhythm. LUNGS: Diminished breath sounds over the lung bases, rhonchi decreased. ABDOMEN: Soft. EXTREMITIES: Leg edema subsiding. LABORATORY DATA: White count is 7500, hemoglobin 11.9, platelet counts 692,000. Her INR is 1.5. Serum sodium 134, potassium 4.9. IMPRESSION: Respiratory insufficiency, hypertensive cardiovascular disease, congestive heart failure, cardiac arrhythmias. 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 PLAN: To continue current medications with current bronchodilators and vasodilators, oxygen therapy and diabetic management and anticoagulants. Dion Turner MD
--- NOTE | 2018-05-20 22:45 | CP.PCM.DIS ---
Provider - Provider Date of Admission: 05/14/18 04:21 Attending physician: Lawrence Pfeiffer MD Consults: 05/14/18 07:07 Cardiology Consult Routine Comment: CHF Consulting Provider: Gurvinder Richardson Consulting Physician: Gurvinder Richardson Reason for Consult: CHF 05/14/18 13:28 Pulmonology Consult Routine Comment: Consulting Provider: Dion Turner Consulting Physician: Dion Turner Reason for Consult: sob Time Spent in preparation of Discharge (in minutes): 24 Diagnosis - Discharge Diagnosis (1) Ambulatory dysfunction Status: Acute (2) Chest pain Status: Acute (3) Degenerative joint disease involving multiple joints Status: Acute (4) Dyspnea on exertion Status: Acute Hospital Course - Lab Results Lab Results: Micro Results 05/20/18 15:20 Sputum Induced Gram Stain - Final 05/17/18 15:07 Urine,Clean Catch Urine Culture - Final Proteus Mirabilis Most Recent Lab Values WBC 7.5 K/uL (4.8-10.8) 05/19/18 07:20 RBC 4.78 Mil/uL (3.80-5.20) 05/19/18 07:20 Hgb 11.9 g/dL (11.0-16.0) 05/19/18 07:20 Hct 37.9 % (34.0-47.0) 05/19/18 07:20 MCV 79.2 fL (81.0-99.0) L 05/19/18 07:20 MCH 24.9 pg (27.0-31.0) L 05/19/18 07:20 MCHC 31.4 g/dL (33.0-37.0) L 05/19/18 07:20 RDW 18.4 % (11.5-14.5) H 05/19/18 07:20 Plt Count 692 K/uL (130-400) H 05/19/18 07:20 MPV 8.7 fL (7.2-11.7) 05/19/18 07:20 Neut % (Auto) 72.6 % (50.0-75.0) 05/19/18 07:20 Lymph % (Auto) 16.2 % (20.0-40.0) L 05/19/18 07:20 [place] % (Auto) 8.8 % (0.0-10.0) 05/19/18 07:20 Eos % (Auto) 1.7 % (0.0-4.0) 05/19/18 07:20 Baso % (Auto) 0.7 % (0.0-2.0) 05/19/18 07:20 Neut # (Auto) 5.4 K/uL (1.8-7.0) 05/19/18 07:20 Lymph # (Auto) 1.2 K/uL (1.0-4.3) 05/19/18 07:20 [place] # (Auto) 0.7 K/uL (0.0-0.8) 05/19/18 07:20 Eos # (Auto) 0.1 K/uL (0.0-0.7) 05/19/18 07:20 Baso # (Auto) 0.1 K/uL (0.0-0.2) 05/19/18 07:20 ESR 55 mm/hr (0-20) H 05/15/18 07:27 PT 16.3 SECONDS (9.7-12.2) H 05/20/18 07:04 INR 1.5 05/20/18 07:04 APTT 55 SECONDS (21-34) H 05/13/18 23:17 D-Dimer, Quantitative 381 ng/mlDDU (0-243) H 05/13/18 23:17 Sodium 134 mmol/L (132-148) 05/19/18 07:20 Potassium 4.9 mmol/L (3.6-5.2) 05/19/18 07:20 Chloride 98 mmol/L (98-107) 05/19/18 07:20 Carbon Dioxide 34 mmol/L (22-30) H 05/19/18 07:20 Anion Gap 10 (10-20) 05/18/18 11:21 BUN 28 mg/dL (7-17) H 05/18/18 11:21 Creatinine 1.2 mg/dL (0.7-1.2) 05/18/18 11:21 Est GFR ( Amer) 55 05/18/18 11:21 Est GFR (Non-Af Amer) 46 05/18/18 11:21 Random Glucose 144 mg/dL (65-105) H 05/18/18 11:21 Calcium 8.7 mg/dl (8.6-10.4) 05/18/18 11:21 Phosphorus 3.4 mg/dL (2.5-4.5) 05/13/18 23:43 Magnesium 1.7 mg/dL (1.6-2.3) 05/13/18 23:43 Total Bilirubin 0.3 mg/dL (0.2-1.3) 05/13/18 23:43 AST 20 U/L (14-36) 05/13/18 23:43 ALT 13 U/L (9-52) 05/13/18 23:43 Alkaline Phosphatase 129 U/L (38-126) H D 05/13/18 23:43 Total Creatine Kinase 20 U/L (30-135) L 05/15/18 07:27 CK-MB (Mass) 0.32 ng/mL (0.0-3.38) 05/14/18 16:29 Troponin I 0.0200 ng/mL (0.00-0.120) 05/15/18 07:27 C-React Prot High Sens > 15.00 mg/L (1.00-3.00) H 05/15/18 07:27 NT-Pro-B Natriuret Pep 583 pg/mL (0-900) 05/13/18 23:43 Total Protein 7.0 g/dL (6.3-8.3) 05/13/18 23:43 Albumin 4.0 g/dL (3.5-5.0) 05/13/18 23:43 Globulin 3.0 gm/dL (2.2-3.9) 05/13/18 23:43 Albumin/Globulin Ratio 1.3 (1.0-2.1) 05/13/18 23:43 Triglycerides 157 mg/dL (0-149) H 05/15/18 07:27 Cholesterol 156 mg/dL (0-199) 05/15/18 07:27 LDL Cholesterol Direct 87 mg/dL (0-129) 05/15/18 07:27 HDL Cholesterol 44 mg/dL (30-70) 05/15/18 07:27 Lipase 82 U/L (23-300) 05/15/18 07:27 Free T4 0.86 ng/dL (0.78-2.19) 05/17/18 09:09 TSH 3rd Generation 3.80 mIU/L (0.46-4.68) 05/17/18 09:09 Urine Color Yellow (YELLOW) 05/20/18 15:20 Urine Clarity Clear (Clear) 05/20/18 15:20 Urine pH 6.0 (5.0-8.0) 05/20/18 15:20 Ur Specific [place] 1.015 (1.003-1.030) 05/20/18 15:20 Urine Protein Negative mg/dL (NEGATIVE) 05/20/18 15:20 Urine Glucose (UA) Normal mg/dL (Normal) 05/20/18 15:20 Urine Ketones Negative mg/dL (NEGATIVE) 05/20/18 15:20 Urine Blood Negative (NEGATIVE) 05/20/18 15:20 Urine Nitrate Negative (NEGATIVE) 05/20/18 15:20 Urine Bilirubin Negative (NEGATIVE) 05/20/18 15:20 Urine Urobilinogen Normal mg/dL (0.2-1.0) 05/20/18 15:20 Ur Leukocyte Esterase Neg Erum/uL (Negative) 05/20/18 15:20 Urine WBC (Auto) 3 /hpf (0-5) 05/20/18 15:20 Urine RBC (Auto) 1 /hpf (0-3) 05/20/18 15:20 Ur Squamous Epith Cells 3 /hpf (0-5) 05/20/18 15:20 Urine Bacteria Occ (<OCC) H 05/20/18 15:20 Urine Opiates Screen Negative (NEGATIVE) 05/14/18 05:05 Urine Methadone Screen Negative (NEGATIVE) 05/14/18 05:05 Ur Barbiturates Screen Negative (NEGATIVE) 05/14/18 05:05 Ur Phencyclidine Scrn Negative (NEGATIVE) 05/14/18 05:05 Ur Amphetamines Screen Negative (NEGATIVE) 05/14/18 05:05 U Benzodiazepines Scrn Negative (NEGATIVE) 05/14/18 05:05 U Oth Cocaine Metabols Negative (NEGATIVE) 05/14/18 05:05 U Cannabinoids Screen Negative (NEGATIVE) 05/14/18 05:05 Cycl Citrul Peptide IgG <16 Units 05/16/18 09:17 LUCÍA 6 Profile Negative (NEGATIVE) 05/15/18 07:27 MIDDLE SCHOOL COUNSELOR Antibody <1.0 AI (<1.0) 05/15/18 07:27 MIDDLE SCHOOL COUNSELOR Antibody Interp Negative (Negative) 05/15/18 07:27 Anti-Streptolysin O Ab Negative (NEGATIVE) 05/15/18 07:27 Discharge Exam - Head Exam Head Exam: NORMOCEPHALIC - Eye Exam Eye Exam: Normal appearance Pupil Exam: NORMAL ACCOMODATION - ENT Exam ENT Exam: Normal Exam - Neck Exam Neck exam: Normal Inspection - Respiratory Exam Respiratory Exam: Decreased Breath Sounds - Cardiovascular Exam Cardiovascular Exam: REGULAR RHYTHM - GI/Abdominal Exam GI & Abdominal Exam: Distended - Rectal Exam Rectal Exam: Deferred - Extremities Exam Extremities exam: pedal edema - Back Exam Back exam: NORMAL INSPECTION - Neurological Exam Neurological exam: Oriented x3 - Psychiatric Exam Psychiatric exam: Depressed - Skin Skin Exam: Dry Discharge Plan - Discharge Medications Prescriptions: Cephalexin [cephalexin] 500 mg PO BID #8 cap Walker [Rolling Walker] 1 dev XX PRN #1 dev - Follow Up Plan Condition: FAIR Disposition: HOME/ ROUTINE Instructions: Heart Healthy Diet, Heart Failure, Adult (DC), Shortness of Breath (Dyspnea) (DC), Chest Pain (DC), Preventing Falls, Cephalexin, Going Up and Down Curbs or Stairs With a Walker or Crutches Additional Instructions: Please follow up with Dr. pfeiffer office in 1 week Please continue medications as per med .rec. Arranged out patient thyroid nodule biopsy at [facility] (IR- [phone]) Dept. will contact you with date and time and when to hold pradaxa VNS service for Home care/home PT PLEASE DIRECTOR VOICE MEDICATION FROM [facility] Referrals: Lawrence Pfeiffer MD [Staff Provider] -
--- NOTE | 2018-05-21 08:27 | RAD ---
HISTORY: chf COMPARISON: Chest x-ray performed 05/13/18 TECHNIQUE: Chest, one view. FINDINGS: Examination limited by habitus and hypoinflation. LUNGS: No focal consolidation. PLEURA: No significant pleural effusion identified. No definite pneumothorax . CARDIOVASCULAR: Moderate to severe cardiomegaly. Median sternotomy wires. Left-sided pacemaker wires. OSSEOUS STRUCTURES: No acute osseous abnormality identified. VISUALIZED UPPER ABDOMEN: Unremarkable. OTHER FINDINGS: None. IMPRESSION: Hypoinflation. Moderate to severe cardiomegaly.
--- NOTE | 2018-05-21 09:45 | PCM.HF ---
Heart Failure Core Measure - Heart Failure Ejection Fraction: 40 % or Greater ROSA Inhibitor Prescribed: Yes Beta-Beth Prescribed: None Contraindication/Reason for not providing: asthma Angiotensin II Receptor Beth Prescribed: Yes AnticoagulationTherapy for Atrial Fibrillation/Atrialflutter: Yes Aldosterone Antagonist Prescribed: No Contraindication/Reason for not providing: ef.45 Hydralazine Nitrate Prescribed: No Contraindication/Reason for not providing: ef>45 Implantable Cardioverter Defibrillator Therapy: No Contraindication/Reason for not providing: ef>45 Cardiac Resynchronization Therapy Prescribed: No Contraindication/Reason for not providing: ef>45 - Follow up Will be discharged to: Home Follow Up Date (must be within 7 days from discharge): 05/25/18 Follow Up Time: 13:00
== END 2018-05-20 17:47 | disposition home or self-care (01) | DRG 144 ==
LOC: C.ER 22:34 → C.6T 05-14 04:21
PROVIDERS: ADMIT Internal Medicine; ATTEND Internal Medicine
DX: I27.20 Pulmonary hypertension, unspecified (principal); I11.0 Hypertensive heart disease with heart failure; I50.9 Heart failure, unspecified; E11.9 Type 2 diabetes mellitus without complications; E66.9 Obesity, unspecified; G47.30 Sleep apnea, unspecified; I34.1 Nonrheumatic mitral (valve) prolapse; I48.91 Unspecified atrial fibrillation; J40 Bronchitis, not specified as acute or chronic; M06.9 Rheumatoid arthritis, unspecified; Z87.891 Personal history of nicotine dependence; Z95.0 Presence of cardiac pacemaker; Z95.2 Presence of prosthetic heart valve; F32.9 Major depressive disorder, single episode, unspecified; M15.9 Polyosteoarthritis, unspecified; R26.2 Difficulty in walking, not elsewhere classified

== ENCOUNTER 2018-06-09 08:44 | Day surgery (SDC) | payer MEDICAID ==
[2018-06-01 14:49] VITALS: BMI 58.5
--- NOTE | 2018-06-09 10:40 | PCM.SURG1 ---
Surgeon's Initial Post Op Note - Surgeon's Notes Surgeon: Parminder Retana MD [place] Operator: NONE Type of Anesthesia: Local Pre-Operative Diagnosis: Right thyroid nodule Operative Findings: US showed a mixed solid and cystic right thyroid nodule measuring 2.6 cm Post-Operative Diagnosis: Right thyroid nodule Operation Performed: US guided FNA Specimen/Specimens Removed: 25 g FNA x 5 passes Estimated Blood Loss: EBL {In ML}: 1 Blood Products Given: N/A Drains Used: No Drains Post-Op Condition: Good Date of Surgery/Procedure: 06/09/18 Time of Surgery/Procedure: 10:35
--- NOTE | 2018-06-09 10:41 | CP.SDSHP ---
Same Day Surgery H & P - History Proposed Procedure: US guided FNA of thyroid nodule Pre-Op Diagnosis: right thyroid nodule - Allergies Allergies: Allergies No Known Allergies Allergy (Verified 02/23/18 16:32) - Physical Exam Mental Status: Alert & Oriented x3 - {Optional Preform as Required} Other Pertinent Findings: US showed a mixed solid and cystic right thyroid nodu le measuring 2.6 cm - Impression Impression: Plan US guided FNA of right thyroid nodule. Pt. Evaluated Today:Candidate for Anesthesia & Procedure: No - Date & Time Date: 06/09/18 Time: 10:40 Short Stay Discharge - Short Stay Discharge Admitting Diagnosis/Reason for Visit: MULTINODULAR THYROID GLAND Disposition: HOME/ ROUTINE
--- NOTE | 2018-06-11 12:04 | US ---
PROCEDURE: Date of Procedure: 06/09/2018 PROCEDURE: 1. Ultrasound guided FNA of right thyroid nodule, CPT 31223 2. Ultrasound guidance for FNA, 21690 Medications: 3cc 1% Lidocaine HISTORY: Enlarged right thyroid nodule. TECHNIQUE: Following informed consent and procedure time-out, a limited ultrasound patient's neck confirmed the presence of mixed solid and cystic nodule measuring 2.4 centimeters. After the patient's neck was prepped and draped in the usual sterile fashion, the skin was anesthetized with 1% lidocaine. Ultrasound-guided fine needle aspiration was then performed of the dominant right thyroid nodule. A total of 5 passes were made into the nodule with 25 gauge needle under ultrasound guidance. The FNA specimen was sent for routine pathology and genetics . Post biopsy ultrasound showed no hematoma. IMPRESSION: Ultrasound-guided FNA of the dominant right thyroid nodule.
== END 2018-06-09 10:45 | disposition home or self-care (01) ==
LOC: C.SPRAD 08:44
PROVIDERS: ATTEND Radiology Vascular & Interventional Radiology
DX: E04.2 Nontoxic multinodular goiter (principal)